=== PATIENT | male | born 1955 | race Caucasian/White ===

== ENCOUNTER 2023-08-25 08:01 | Outpatient (OUT) | payer BC, SELFPAY ==
[2023-08-25 08:24] LABS: Basophils Absolute Auto 0.1 10^3/uL (0.0-0.1); Basophils Percent Auto 1.5 % (0.2-2.0); Eosinophils Absolute Auto 0.4 10^3/uL (0.0-0.7); Hematocrit 46.5 % (42.0-54.0); Hemoglobin 15.6 g/dL (14.0-18.0); Immature Granulocytes Abs Auto 0.01 10^3/uL (0.00-0.03); Immature Granulocytes Pct Auto 0.2 % (0.0-0.5); Lymphocytes Absolute Auto 1.4 10^3/uL (1.2-3.8); Lymphocytes Percent Auto 23.2 % (20.5-60.0); Mean Corpuscular HGB Conc 33.5 g/dL (29.9-35.2); Mean Corpuscular Hemoglobin 30.7 pg (25.9-34.0); Mean Corpuscular Volume 91.5 fL (80.0-94.0); Monocytes Absolute Auto 0.5 10^3/uL (0.3-0.8); Monocytes Percent Auto 8.7 % (1.7-12.0); Neutrophils Absolute Auto 3.6 10^3/uL (1.4-6.5); Neutrophils Percent Auto 60.4 % (43.0-75.0); Platelet Count 207 10^3/uL (150-450); Red Blood Count 5.08 10^6/uL (4.70-6.10); Red Cell Distribution Width 12.1 % (11.0-15.0)
[2023-08-25 08:27] LABS: Bilirubin Urine NEGATIVE (NEGATIVE); Blood Urine NEGATIVE (NEGATIVE); Clarity Urine CLEAR (CLEAR); Color Urine YELLOW (YELLOW); Glucose Urine UA NEGATIVE (NEGATIVE); Ketones Urine NEGATIVE (NEGATIVE); Leukocyte Esterase Urine NEGATIVE (NEGATIVE); Nitrite Urine NEGATIVE (NEGATIVE); Protein Urine NEGATIVE (NEG/TRACE); Specific Gravity Urine 1.025 (1.005-1.025); Urobilinogen Urine 0.2 EU/dL (0.2-1.0); pH Urine 6.5 (5.0-9.0)
[2023-08-25 08:30] LABS: Bacteria Urine NONE SEEN #/HPF (NONE SEEN); Crystals Seen? None Seen #/HPF (None Seen); Mucus Urine NONE SEEN (NONE SEEN); RBC Urine NONE SEEN #/HPF (0-2); Squamous Epithelial Cell Urine NONE SEEN #/LPF (NONE/RARE); WBC Urine NONE SEEN #/HPF (NONE SEEN)
[2023-08-25 08:31] LABS: Cast Seen? NONE SEEN #/LPF (NONE SEEN)
[2023-08-25 09:08] LABS: Estimated Average Glucose 114 mg/dL; Glycohemoglobin A1C 5.6 % (4.5-6.2)
[2023-08-25 10:33] LABS: Alanine Aminotransferase 17 U/L (16-63); Albumin Level 3.9 g/dL (3.4-5.0); Alkaline Phosphatase 81 U/L (46-116); Anion Gap 9.6; Aspartate Amino Transferase 19 U/L (15-37); Bilirubin Total 0.6 mg/dL (0.2-1.0); Calcium 9.1 mg/dL (8.5-10.1); Carbon Dioxide 30.5 mmol/L (21.0-32.0); Chloride 104 mmol/L (98-107); Chol HDL Ratio 3.7; Cholesterol 179 mg/dL (<=200); Estimated GFR (African America >60 (>=60); Estimated GFR (Non-African Ame >60 (>=60); Globulin 3.8 g/dL; Glucose 94 mg/dL (74-106); HDL Cholesterol 49 mg/dL (40-60); LDL Cholesterol Calculated 110.8 mg/dL; Potassium 4.1 mmol/L (3.5-5.1); Sodium 140 mmol/L (136-145); Total Protein 7.7 g/dL (6.4-8.2); Triglycerides 96 mg/dL (<=150); VLDL CHOLESTEROL 19.2 mg/dL
== END 2023-08-25 08:02 | disposition home or self-care (01) ==
LOC: LAB 08:06
PROVIDERS: PCP Family Medicine; Visit Provider Family Medicine
DX: E78.5 Hyperlipidemia, unspecified (principal); R97.20 Elevated prostate specific antigen [PSA]; R35.1 Nocturia; R73.9 Hyperglycemia, unspecified; Z79.899 Other long term (current) drug therapy; R63.4 Abnormal weight loss
CPT/HCPCS: 36415; 80053; 80061; 81001; 83036; 84443; 85025; 87086; G0103

== ENCOUNTER 2024-08-27 06:52 | Outpatient (OUT) | payer BC, SELFPAY ==
--- OUTSIDE RECORDS SUMMARY | 2024-08-27 06:57 | XMS_ITS | CCD ---
Author Organization [facility] Care Team Providers Care Cable Splicer Assistant Name Role Phone Amanda Fry Unavailable LISANDRA, DR PATEL Admitting Unavailable LISANDRA, DR PATEL Attending Unavailable LISANDRA, DR PATEL Primary Care Unavailable LISANDRA, DR PATEL Consulting Unavailable Ball DO, Calvin E Primary Care Provider DAVID V, DEANDRA Attending Unavailable DAVID V, DEANDRA Admitting Unavailable DAVID V, DEANDRA Referring Unavailable BALL, CALVIN E Primary Care Unavailable DAVID V, DEANDRA Referring Unavailable DAVID V, DEANDRA Attending Unavailable BALL, CALVIN E Primary Care Unavailable DAVID V, DEANDRA Referring Unavailable BALL, CALVIN E Primary Care Unavailable DAVID V, DEANDRA Referring Unavailable BALL, CALVIN E Primary Care Unavailable DAVID V, DEANDRA Referring Unavailable BALL, CALVIN E Primary Care Unavailable DAVID V, DEANDRA Attending Unavailable DAVID V, DEANDRA Admitting Unavailable DAVID V, DEANDRA Referring Unavailable BALL, CALVIN E Primary Care Unavailable Unavailable Primary Care Provider Unavailflor e CORETTA MCGRATH Attending Unavailable Medications Current Medications Medication Drug Class(es) Dates Sig (Normalized) Sig (Original) ascorbic acid 500 mg oral capsule (2 sources) Vitamin C Vitamin C 500 MG Orally Active Multivitamin preparation (2 sources) Multivitamin Act william Vitamin C 500 MG (2 sources) Vitamin C 500 MG Orally Active Vitamin E (4 sources) Vitamin E Active Zinc (2 sources) Zinc Active Completed/Discontinued Medications Medication Drug Class(es) Dates Sig (Normalized) Sig (Original) acetaminophen 325 mg / oxyCODONE hydrochloride 5 mg oral tablet (1 source) Opioid Agonist Start: 10-02-2008 take 1-2 tablets by mouth every four hours as needed oxycodone hcl/acetaminophen (PERCOCET 5 MG-325 MG TAB) 1-2 PO q4h PRN 30 0 10/02/2008 Active Comment on above: 1-2 PO q4h PRN tamsulosin hydrochloride 0.4 mg oral capsule (1 source) alpha-Adrenergic Kale Start: 10-02-2008 tamsulosin hcl(FLOMAX 0.4 MG 24 HR CAP) Take one(1) tablet at bedtime. 30 0 10/02/2008 Active Comment on above: Take one(1) tablet a t bedtime. Problems Active Problems Problem Classification Problem Date Documented Da te Episodic/Chronic Blindness and vision defects (1 source) Bilateral hyperopia of eyes; Translations: [Hypermetropia, bilateral] 06-18-2023 Episodic Cataract (2 sources) Bilateral senile combined form cataracts of eyes; Translations: [Combined forms of age-related cataract, bilateral] Onset: 09-23-2023 06-18-2023 Chronic Diseases of white blood cells (4 sources) Eosinophil count raised; Translations: [Eosinophilia] Chronic Disorders of lipid metabolism (5 sources) Hyperlipidemia; Translations: [Hyperlipidemia, unspecified] Onset: 09-18-2021 Resolved: 09-18-2021 Chronic Essential hypertension (5 sources) Hypertensive disorder; Translations: [Essential (primary) hypertension] Onset: 09-18-2021 Resolved: 09-18-2021 Chronic Glaucoma (1 source) Narrow angle; 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, bilateral] 06-18-2023 Chronic Neoplasms of unspecified nature or uncertain behavior (2 sources) Neoplastic disease; Translations: [Neoplasm of unspecified behavior of bone, soft tissue, and skin] 06-30-2024 Episodic Other and unspecified benign neoplasm (4 sources) History of polyp of colon; Translations: [Personal history of colonic polyps] Episodic Other and unspecified benign neoplasm (2 sources) Melanocytic nevus of trunk; Translations: [Melanocytic nevi of trunk] 06-30-2024 Episodic Other circulatory disease (2 sources) Spider nevus; Translations: [Nevus, non-neoplastic] 06-30-2024 Episodic Other skin disorders (2 sources) Lentiginosis; Translations: [Other melanin hyperpigmentation] 06-30-2024 Episodic Other skin disorders (2 sources) Actinic keratosis; Translations: [Actinic keratosis] 06-30-2024 Episodic Other skin disorders (2 sources) Seborrheic keratosis; Translations: [Other seborrheic keratosis] 06-30-2024 Episodic Retinal detachments; defects; vascular occlusion; and retinopathy (1 source) Macular hole of right eye; Translations: [Macular cyst, hole, or pseudohole, right eye] 06-18-2023 Chronic Past or Other Problems Problem Classification Problem Date Documented Da te Episodic/Chronic Calculus of urinary tract (1 source) Ureteric stone; Translations: [Calculus of ureter] Onset: 08-29-2008 08-29-2008 Episodic Diabetes mellitus without complication (1 source) Hyperglycemia, unspecified Onset: 09-18-2021 Resolved: 09-18-2021 Episodic Genitourinary symptoms and ill-defined conditions (1 source) Nocturia Onset: 09-18-2021 Resolved: 09-18-2021 Episodic Other aftercare (1 source) Other director long term care (current) drug therapy Onset: 09-18-2021 Resolved: 09-18-2021 Episodic Other nutritional; endocrine; and metabolic disorders (1 source) Abnormal weight loss Onset: 09-18-2021 Resolved: 09-18-2021 Episodic Other screening for suspected conditions (not mental disorders or infectious disease) (1 source) Elevated prostate specific antigen [PSA] Onset: 09-18-2021 Resolved: 09-18-2021 Episodic Results Test Name Value Interpretation Reference Range Facility No Panel Informationon 06-30 Type of biopsy: tangential Informed consent: discussed and consent obtained Informed consent comment: The risks and benefits of the biopsy were discussed. Risks include but are not limited to bleeding, infection, scarring, pain, and nerve damage. An opportunity to ask questions prior to the procedure was permitted and all questions were answered. Patient was prepped and draped in usual sterile fashion: area cleansed with alcohol. Anesthesia: the lesion was anesthetized in a standard fashion Anesthetic: 1% lidocaine w/ epinephrine 1-100,000 buffered w/ 8.4% NaHCO3 Instrument used: DermaBlade Hemostasis achieved with: electrodesiccation Outcome: patient tolerated procedure well Outcome comment: The specimen was placed in a prelabeled formalin container to be sent for pathology Post-procedure details: sterile dressing applied and wound care instructions given Post-procedure details comment: Emphasized need to contact clinic for any signs of infection, uncontrollable bleeding, or complications. Dressing type: bandage Additional details: Photo taken Amount of lidocaine used: 1 cc [facility] Type of biopsy: tangential Informed consent: discussed and consent obtained Informed consent comment: The risks and benefits of the biopsy were discussed. Risks include but are not limited to bleeding, infection, scarring, pain, and nerve damage. An opportunity to ask questions prior to the procedure was permitted and all questions were answered. Patient was prepped and draped in usual sterile fashion: area cleansed with alcohol. Anesthesia: the lesion was anesthetized in a standard fashion Anesthetic: 1% lidocaine w/ epinephrine 1-100,000 buffered w/ 8.4% NaHCO3 Instrument used: DermaBlade Hemostasis achieved with: electrodesiccation Outcome: patient tolerated procedure well Outcome comment: The specimen was placed in a prelabeled formalin container to be sent for pathology Post-procedure details: sterile dressing applied and wound care instructions given Post-procedure details comment: Emphasized need to contact clinic for any signs of infection, uncontrollable bleeding, or complications. Dressing type: bandage Additional details: Photo taken Amount of lidocaine used: 1 cc [facility] Type of biopsy: tangential Informed consent: discussed and consent obtained Informed consent comment: The risks and benefits of the biopsy were discussed. Risks include but are not limited to bleeding, infection, scarring, pain, and nerve damage. An opportunity to ask questions prior to the procedure was permitted and all questions were answered. Patient was prepped and draped in usual sterile fashion: area cleansed with alcohol. Anesthesia: the lesion was anesthetized in a standard fashion Anesthetic: 1% lidocaine w/ epinephrine 1-100,000 buffered w/ 8.4% NaHCO3 Instrument used: DermaBlade Hemostasis achieved with: electrodesiccation Outcome: patient tolerated procedure well Outcome comment: The specimen was placed in a prelabeled formalin container to be sent for pathology Post-procedure details: sterile dressing applied and wound care instructions given Post-procedure details comment: Emphasized need to contact clinic for any signs of infection, uncontrollable bleeding, or complications. Dressing type: bandage Additional details: Photo taken Amount of lidocaine used: 1.0 cc [facility] ANE POSTPROC EVALon 024 ANES POSTPROC EVAL HNO ID: [id number] Author: MADAI BROOKS MD Service: Anesthesiology Author Type: Physician Type: Anesthesia Postprocedure Evaluation Filed: 10/07/2023 11:39 Note Text: POST ANESTHESIA EVALUATION NOTE : 1955 Procedure Summary Date: 10/07/23 Room / Location: [address] Anesthesia Start: 1041 Anesthesia Stop: 110 Procedures: PHACOEMULSIFICATION CATARACT IMPLANT INTRAOCULAR LENS W/O ENDOSCOPIC CYCLOPHOTOCOAGULATION (Right: Eye) OPHTHALMIC BIOMETRY BY PARTIAL COHERENCE INTERFEROMETRY W/INTRAOCULAR LENS POWER CALCULATION (Right: Eye) Diagnosis: Combined forms of age-related cataract of both eyes (Combined forms of age-related cataract of both eyes [H25.813]) Surgeons: Deandra Voss V, MD Responsible Provider: Madai Brooks MD Anesthesia Type: MAC ASA Status: 2 Anesthesia Type: MAC Last Vitals Vitals Value Taken Time BP 126/81 10/07/23 1111 Temp 36.6 ?C (97.9 ?F) 10/07/23 1101 HR SpO2 65 10/07/23 1111 Resp 16 10/07/23 1111 SpO2 98 % 10/07/23 1111 Post Anesthesia Patient Status Patient Evaluation: PACU. PACU/ICU Patient Condition: stable. Anticipated Disposition: phase 2 then home. Neurological Status: aware and responsive. Pulmonary Status: breathing comfortably on room air Airway Control: returned to baseline unsupported. Cardiovascular Status: stable. Pain Management: clinically adequate - multimodal analgesia pain management approach Postoperative Hydration: acceptable. Intraoperative Events: no significant anesthesia events Recommendation: continue current plan of care. Anesthesia Observations No Documentation SIGNATURE: Madai Brooks MD PATIENT NAME: Roger Kapadia DATE: October 07, 2023 TIME: 11:39 AM CSN: [id number] [facility] ANES PRE-OPon 10-07-2023 ANES PRE-OP HNO ID: [id number] Author: BERT CORTEZ II, DO Service: Anesthesiology Author Type: Anesthesiologist Type: Anesthesia Preprocedure Evaluation Filed: 10/07/2023 10:30 Note Text: ANESTHESIOLOGY DAY OF SURGERY NOTE : 1955 Procedure Information Date/Time: 10/07/23 1115 Procedures: PHACOEMULSIFICATION CATARACT IMPLANT INTRAOCULAR LENS W/O ENDOSCOPIC CYCLOPHOTOCOAGULATION (Right: Eye) OPHTHALMIC BIOMETRY BY PARTIAL COHERENCE INTERFEROMETRY W/INTRAOCULAR LENS POWER CALCULATION (Right: Eye) Location: [address] Surgeons: Deandra Voss V, MD Estimated body mass index is 24.74 kg/m? as calculated from the following: Height as of 09/11/23: 175.3 cm (5' 9 ). Weight as of 09/11/23: 76 kg (167 lb 8.8 oz). Most recent hematocrit and potassium results: Hematocrit 47.5 09/25/2008 Potassium 4.4 09/25/2008 Relevant Problems No relevant active problems I - PHYSICAL EVALUATION AIRWAY Patient intubated: No. Tracheostomy tube not present Mallampati: II. TM distance: >3 FB. Neck ROM: full ROM without neurological symptoms. Mouth opening: adequate. Short neck: no. Thick neck: no Elliott present: yes DENTAL Dental findings: teeth intact. Additional exam findings: yes. CARDIOVASCULAR Rhythm: regular Rate: normal PULMONARY Breath sounds clear to auscultation. Other findings: PONV. II - ANESTHESIA PLAN ASA Score: 2 Anesthetic Plan: MAC The patient is not a current smoker. NPO Status: adequate Beta Kale Monitoring Plan Monitoring plan: standard ASA. Post Procedure Analgesic Plan Postoperative analgesic plan: parenteral or oral opioids. Informed Consent Anesthetic risks, benefits, alternatives, personnel and consent discussed: yes. Patient / Responsible Democrat agrees to proceed: yes Patient / Surrogate agrees to blood products: Yes Vitals Value Taken Time BP 148/80 10/07/23 1018 Pulse 62 10/07/23 1018 Resp 16 10/07/23 1018 Temp 36.8 ?C (98.2 ?F) 10/07/23 1018 SpO2 98 % 10/07/23 1018 Facility-Administered Medications as of 10/07/2023 Medication Dose Route Frequency - NaCl 0.9% iv infusion 30 mL/hr INTRAVENOUS CONTINUOUS - [COMPLETED] lidocaine HCl (PF) 40 mg/mL 2 mg injection (XYLOCAINE) 0.05 mL RIGHT EYE EVERY 5 MINUTES X 3 DOSES - [COMPLETED] PHENYLephrine 2.5 % 1 Drop (AK-DILATE, RODGER-SYNEPHRINE) 1 Drop RIGHT EYE EVERY 5 MINUTES X 3 DOSES - [COMPLETED] tropicamide 1 % 1 Drop (MYDRIACYL) 1 Drop RIGHT EYE EVERY 5 MINUTES X 3 DOSES - cyclopentolate 1 % 1 Drop (CYCLOGYL) 1 Drop RIGHT EYE Pre-Op PRN - [COMPLETED] keTORolac 0.5 % 1 Drop (ACULAR) 1 Drop RIGHT EYE q 5 MIN - [COMPLETED] Povidone-Iodine 5 % 30 mL ophth soln (BETADINE) 30 mL RIGHT EYE ONCE - [COMPLETED] balanced salts 15 mL (BSS) 15 mL RIGHT EYE ONCE - ondansetron (PF) 4 mg injection (ZOFRAN) 4 mg INTRAVENOUS ONCE - [COMPLETED] lidocaine HCl (PF) 40 mg/mL 2 mg injection (XYLOCAINE) 0.05 mL LEFT EYE EVERY 5 MINUTES X 3 DOSES - [COMPLETED] PHENYLephrine 2.5 % 1 Drop (AK-DILATE, RODGER-SYNEPHRINE) 1 Drop LEFT EYE EVERY 5 MINUTES X 3 DOSES - [COMPLETED] tropicamide 1 % 1 Drop (MYDRIACYL) 1 Drop LEFT EYE EVERY 5 MINUTES X 3 DOSES - [COMPLETED] keTORolac 0.5 % 1 Drop (ACULAR) 1 Drop LEFT EYE q 5 MIN - [COMPLETED] Povidone-Iodine 5 % 30 mL ophth soln (BETADINE) 30 mL LEFT EYE ONCE - [COMPLETED] balanced salts 15 mL (BSS) 15 mL LEFT EYE ONCE - [COMPLETED] ondansetron (PF) 4 mg injection (ZOFRAN) 4 mg INTRAVENOUS ONCE Outpatient Medications as of 10/07/2023 Medication Sig - prednisoLONE acetate (PRED FORTE) 1 % ophthalmic suspension USE DIRECTED BY PHYSICIAN, IN OPERATIVE EYE, BEGINNING ONE DAY AFTER SURGERY - keTORolac (ACULAR) 0.5 % ophthalmic solution USE DIRECTED BY PHYSICIAN, IN OPERATIVE EYE, BEGINNING ONE DAY AFTER SURGERY - prednisoLONE acetate (PRED FORTE) 1 % ophthalmic suspension USE DIRECTED BY PHYSICIAN, IN OPERATIVE EYE, BEGINNING ONE DAY AFTER SURGERY - keTORolac (ACULAR) 0.5 % ophthalmic solution USE DIRECTED BY PHYSICIAN, IN OPERATIVE EYE, BEGINNING ONE DAY AFTER SURGERY I have interviewed and examined the patient. I have reviewed the medical record and/or the pre-anesthesia evaluation, pertinent labs, and test results. This contains updated information obtained within 48 hours of Surgery/Procedure. SIGNATURE: Bert Cortez II, DO PATIENT NAME: Roger Kapadia DATE: October 07, 2023 TIME: 10:30 AM CSN: [id number] [facility] OPERATIVE NOon 10-07-2023 OPERATIVE NO HNO ID: [id number] Author: DEANDRA VOSS MD Service: Ophthalmology Author Type: Physician Type: Operative Report Filed: 10/07/2023 10:56 Note Text: OPERATIVE REPORT DATE OF SERVICE: October 07, 2023 PRIMARY SURGEON: Deandra Voss M.D. PHOTOENGRAVING SUPERVISOR: None [Any nurse listed as assisting or otherwise participating in this patient's care in the operating room has solely performed the duties of a circulating nurse.] Procedure(s) (LRB): PHACOEMULSIFICATION CATARACT IMPLANT INTRAOCULAR LENS W/O ENDOSCOPIC CYCLOPHOTOCOAGULATION (Right) OPHTHALMIC BIOMETRY BY PARTIAL COHERENCE INTERFEROMETRY W/INTRAOCULAR LENS POWER CALCULATION (Right) ANESTHESIA: Topical with monitored anesthesia care. PREOPERATIVE DIAGNOSIS: Combined cataract POSTOPERATIVE DIAGNOSIS: Combined cataract, presbyopia OPERATIVE INDICATIONS: BAT 20/50 OPERATIVE PROCEDURE: The patient was admitted to the operating suite where an IV and BP, EKG, and O2 monitors were placed. The operative eye was pretreated with 2.5% tropicamide and 1% phenylephrine eye drops. The operative eye was confirmed and marked. The intended Intraocular lens model and power circled on the patient's source document was confirmed to match the intraocular lens model and power selected from the Intraocular lens consignment, in accordance with [facility] intraocular lens verification policy. Nasal oxygen was administered. With the patient in the supine position, topical lidocaine 4% was placed in the eye. The patient was then prepped and draped in the usual sterile fashion for intraocular surgery. After a time-out confirming correct patient using two unique identifiers, correct eye, correct operation, presence of allergies, correct implant, and implant sterility date, an eyelid speculum was placed. Under the operating microscope a beveled clear corneal incision was created temporally with a [place] blade then a 2.4 mm keratome. The anterior chamber was reformed with Viscoat, after which the anterior capsule was opened centrally. Using the Utrata forceps a continuous curvilinear capsulorrhexis of approximately 5.5 mm round was created. Gentle hydrodissection was accomplished using preservative-free lidocaine on a 27-gauge cannula. Using the Terrance phacoemulsification unit with the Kelman curved tip, the anterior chamber was entered and the nucleus was removed while it was in the bag. The epinuclear ring was dissected into several segments, then removed using the phacoemulsification unit set to the desired aspiration flow rate and ultrasound parameters. It was necessary to use chopper forceps at various intervals to aid in the fragmentation of the dense lens material. Great care was taken not to violate the posterior capsule. The silicone-tipped I and A instrument was used to remove the cortex and buff off any remaining cataractous material from the posterior capsule. The capsular bag was then reformed with Discovisc and the following Intraocular lens implant Implant Name Type Inv. Item Serial No. [employer] Lot No. LRB No. Used Action Model No. [id number] [employer] - [id number] Intraocular Lens [id number] [employer] [id number] [employer] Right 1 Implanted [id number] was inserted through the lips of the wound into the capsular bag. Using the I and A instrument, the Discovisc was removed from the anterior chamber and capsular bag, and the implant was centered. Cefuroxime 1mg in 0.1 mL normal saline was introduced into the anterior chamber through the clear corneal incision using a 30 gauge cannula. The wound was checked and found to be watertight. At the end of the procedure, the cornea was clear, the anterior chamber was deep and clear, the pupil was round, the implant was centered within the capsular bag, and the posterior capsule was intact. The eyelid speculum was removed and prednisolone acetate 1% and timolol 0.5% eye drops were administered. A shield was affixed over the eye and the patient was sent to the recovery room, leaving the operating room in excellent condition. ESTIMATED BLOOD LOSS: <1mL SPECIMEN: None FINDINGS: Age-related cataract COMPLICATIONS: None Incision/Procedure Start Time: 10:47 AM Incision Close/Procedure End Time: 10:54 AM - Comanage with Dr Sood; relinquish care POD #1 Deandra VOSS MD [facility] ANES POSTPROC EVALon 024 ANES POSTPROC EVAL HNO ID: [id number] Author: BERT CORTEZ II, DO Service: Anesthesiology Author Type: Anesthesiologist Type: Anesthesia Postprocedure Evaluation Filed: 09/23/2023 14:09 Note Text: POST ANESTHESIA EVALUATION NOTE : 1955 Procedure Summary Date: 09/23/23 Room / Location: [address] Anesthesia Start: 1329 Anesthesia Stop: 1345 Procedures: PHACOEMULSIFICATION CATARACT IMPLANT INTRAOCULAR LENS W/O ENDOSCOPIC CYCLOPHOTOCOAGULATION (Left: Eye) OPHTHALMIC BIOMETRY BY PARTIAL COHERENCE INTERFEROMETRY W/INTRAOCULAR LENS POWER CALCULATION (Left: Eye) Diagnosis: Combined forms of age-related cataract of both eyes (Combined forms of age-related cataract of both eyes [H25.813]) Surgeons: Deandra Voss V, MD Responsible Provider: Bert Cortez II, DO Anesthesia Type: MAC ASA Status: 2 Anesthesia Type: MAC Last Vitals Vitals Value Taken Time BP 129/80 09/23/23 1355 Temp 36.6 ?C (97.9 ?F) 09/23/23 1345 HR SpO2 68 09/23/23 1355 Resp 16 09/23/23 1355 SpO2 96 % 09/23/23 1355 Post Anesthesia Patient Status Patient Evaluation: PACU. PACU/ICU Patient Condition: stable. Neurological Status: aware and responsive. Pulmonary Status: breathing comfortably on room air Airway Control: returned to baseline unsupported. Cardiovascular Status: stable. Pain Management: clinically adequate Postoperative Hydration: acceptable. Intraoperative Events: no significant anesthesia events Post Operative Nausea/Vomiting Status: no significant post operative nausea or vomiting Recommendation: continue current plan of care. Anesthesia Observations No Documentation SIGNATURE: Bert Cortez II, DO PATIENT NAME: Roger Kapadia DATE: September 23, 2023 TIME: 2:09 PM CSN: [id number] [facility] ANES PRE-OPon 09-23-2023 ANES PRE-OP HNO ID: [id number] Author: BERT CORTEZ II, DO Service: Anesthesiology Author Type: Anesthesiologist Type: Anesthesia Preprocedure Evaluation Filed: 09/23/2023 13:08 Note Text: ANESTHESIOLOGY DAY OF SURGERY NOTE : 1955 Procedure Information Date/Time: 09/23/23 1240 Procedures: PHACOEMULSIFICATION CATARACT IMPLANT INTRAOCULAR LENS W/O ENDOSCOPIC CYCLOPHOTOCOAGULATION (Left: Eye) OPHTHALMIC BIOMETRY BY PARTIAL COHERENCE INTERFEROMETRY W/INTRAOCULAR LENS POWER CALCULATION (Left: Eye) Location: [address] Surgeons: Deandra Voss V, MD Estimated body mass index is 24.74 kg/m? as calculated from the following: Height as of 09/11/23: 175.3 cm (5' 9 ). Weight as of 09/11/23: 76 kg (167 lb 8.8 oz). Most recent hematocrit and potassium results: Hematocrit 47.5 09/25/2008 Potassium 4.4 09/25/2008 Relevant Problems No relevant active problems I - PHYSICAL EVALUATION AIRWAY Patient intubated: No. Tracheostomy tube not present Mallampati: II. TM distance: >3 FB. Neck ROM: full ROM without neurological symptoms. Mouth opening: adequate. Short neck: no. Thick neck: no Elliott present: yes DENTAL Dental findings: teeth intact. Additional exam findings: yes. CARDIOVASCULAR Rhythm: regular Rate: normal PULMONARY Breath sounds clear to auscultation. Other findings: PONV. II - ANESTHESIA PLAN ASA Score: 2 Anesthetic Plan: MAC The patient is not a current smoker. NPO Status: adequate Beta Kale Monitoring Plan Monitoring plan: standard ASA. Post Procedure Analgesic Plan Postoperative analgesic plan: parenteral or oral opioids. Informed Consent Anesthetic risks, benefits, alternatives, personnel and consent discussed: yes. Patient / Responsible Democrat agrees to proceed: yes Patient / Surrogate agrees to blood products: Yes Vitals Value Taken Time BP 155/94 09/23/23 1257 Pulse Resp 14 09/23/23 1257 Temp 36.6 ?C (97.9 ?F) 09/23/23 1257 SpO2 100 % 09/23/23 1257 Facility-Administered Medications as of 09/23/2023 Medication Dose Route Frequency - NaCl 0.9% iv infusion 30 mL/hr INTRAVENOUS CONTINUOUS - [COMPLETED] lidocaine HCl (PF) 40 mg/mL 2 mg injection (XYLOCAINE) 0.05 mL LEFT EYE EVERY 5 MINUTES X 3 DOSES - [COMPLETED] PHENYLephrine 2.5 % 1 Drop (AK-DILATE, RODGER-SYNEPHRINE) 1 Drop LEFT EYE EVERY 5 MINUTES X 3 DOSES - [COMPLETED] tropicamide 1 % 1 Drop (MYDRIACYL) 1 Drop LEFT EYE EVERY 5 MINUTES X 3 DOSES - cyclopentolate 1 % 1 Drop (CYCLOGYL) 1 Drop LEFT EYE Pre-Op PRN - [COMPLETED] keTORolac 0.5 % 1 Drop (ACULAR) 1 Drop LEFT EYE q 5 MIN - [COMPLETED] Povidone-Iodine 5 % 30 mL ophth soln (BETADINE) 30 mL LEFT EYE ONCE - [COMPLETED] balanced salts 15 mL (BSS) 15 mL LEFT EYE ONCE Outpatient Medications as of 09/23/2023 Medication Sig - prednisoLONE acetate (PRED FORTE) 1 % ophthalmic suspension USE DIRECTED BY PHYSICIAN, IN OPERATIVE EYE, BEGINNING ONE DAY AFTER SURGERY - keTORolac (ACULAR) 0.5 % ophthalmic solution USE DIRECTED BY PHYSICIAN, IN OPERATIVE EYE, BEGINNING ONE DAY AFTER SURGERY I have interviewed and examined the patient. I have reviewed the medical record and/or the pre-anesthesia evaluation, pertinent labs, and test results. This contains updated information obtained within 48 hours of Surgery/Procedure. SIGNATURE: Bert Cortez II, DO PATIENT NAME: Roger Kapadia DATE: September 23, 2023 TIME: 1:07 PM CSN: [id number] [facility] [facility] OPERATIVE NOon 09-23-2023 OPERATIVE NO HNO ID: [id number] Author: DEANDRA VOSS MD Service: Ophthalmology Author Type: Physician Type: Operative Report Filed: 09/23/2023 14:03 Note Text: OPERATIVE REPORT DATE OF SERVICE: September 23, 2023 PRIMARY SURGEON: Deandra Voss M.D. PHOTOENGRAVING SUPERVISOR: None Procedure(s) (LRB): PHACOEMULSIFICATION CATARACT IMPLANT INTRAOCULAR LENS W/O ENDOSCOPIC CYCLOPHOTOCOAGULATION (Left) OPHTHALMIC BIOMETRY BY PARTIAL COHERENCE INTERFEROMETRY W/INTRAOCULAR LENS POWER CALCULATION (Left) ANESTHESIA: Topical with monitored anesthesia care. PREOPERATIVE DIAGNOSIS: Combined cataract POSTOPERATIVE DIAGNOSIS: Combined cataract, presbyopia OPERATIVE INDICATIONS: BAT 20/50 OPERATIVE PROCEDURE: The patient was admitted to the operating suite where an IV and BP, EKG, and O2 monitors were placed. Nasal oxygen was administered. The operative eye was confirmed, marked, then pretreated with 2.5% tropicamide and 1% phenylephrine eye drops. With the patient in the supine position, topical lidocaine gel 2% was placed in a small ribbon in the lower cul-de-sac. The patient was then prepped and draped in the usual sterile fashion for intraocular surgery. After a time-out confirming correct patient, correct eye, correct operation, presence of allergies, and correct implant, an eyelid speculum was placed. Under the operating microscope a beveled clear corneal incision was created temporally with a Falmouth blade then a 2.4 mm keratome. The anterior chamber was reformed with Viscoat, after which the anterior capsule was opened centrally. Using the Utrata forceps a continuous curvilinear capsulorrhexis of approximately 5.5 mm round was created. Gentle hydrodissection was accomplished using preservative-free lidocaine on a 27-gauge cannula. Using the Terrance phacoemulsification unit with the Kelman curved tip, the anterior chamber was entered and the nucleus was removed while it was in the bag. The epinuclear ring was dissected into several segments, then removed using the phacoemulsification unit set to the desired aspiration flow rate and ultrasound parameters. It was necessary to use chopper forceps at various intervals to aid in the fragmentation of the dense lens material. Great care was taken not to violate the posterior capsule. The silicone-tipped I and A instrument was used to remove the cortex and buff off any remaining cataractous material from the posterior capsule. The capsular bag was then reformed with Discovisc and the following Intraocular lens implant Implant Name Type Inv. Item Serial No. [employer] Lot No. LRB No. Used Action Model No. [id number] [employer] - [id number] Intraocular Lens [id number] [employer] [id number] [employer] Left 1 Implanted [id number] was inserted through the lips of the wound into the capsular bag. Using the I and A instrument, the Discovisc was removed from the anterior chamber and capsular bag, and the implant was centered. Cefuroxime 1mg in 0.1 mL normal saline was introduced into the anterior chamber through the clear corneal incision using a 30 gauge cannula. The wound was checked and found to be watertight. At the end of the procedure, the cornea was clear, the anterior chamber was deep and clear, the pupil was round, the implant was centered within the capsular bag, and the posterior capsule was intact. The eyelid speculum was removed and prednisolone acetate 1% and timolol 0.5% eye drops were administered. A shield was affixed over the eye and the patient was sent to the recovery room, leaving the operating room in excellent condition. ESTIMATED BLOOD LOSS: <1mL SPECIMEN: None FINDINGS: Age-related cataract COMPLICATIONS: None Incision/Procedure Start Time: 1:33 PM Incision Close/Procedure End Time: 1:40 PM - Comanage with Dr Sood; [facility] care POD #1 Deandra VOSS MD [facility] ROGER KAPADIA ([id number]) 1955 M Date Time Provider Department 09/11/23 SHANTAL NGUYỄN During your visit today, we recorded the following information about you: Allergies As of Date: 09/11/2023 (No Known Allergies) Date Reviewed: 06/18/2023 Reviewed by: Deandra Voss V, MD - Fully Assessed Primary Visit Diagnosis:OPENED IN ERROR Prescriptions as of 09/11/2023 - oxycodone hcl/acetaminophen(PERCO CET 5 MG-325 MG TAB) 1-2 PO q4h PRN - tamsulosin hcl(FLOMAX 0.4 MG 24 HR CAP) Take one(1) tablet at bedtime. Problem List As Of Date 09/11/2023 Noted Resolved CALCULUS OF URETER [N20.1] 08/29/2008 Encounter Status:Closed by SHANTAL NGUYỄN on 09/11/23 [facility] HISTORY PHYSICALon HISTORY PHYSICAL HNO ID: [id number] Author: SHANTAL NGUYỄN APRN.INTELLIGENCE ANALYST Service: ? Author Type: Nurse Practitioner Type: H&P Filed: 09/11/2023 08:18 Note Text: HISTORY AND PHYSICAL EXAMINATION SERVICE DATE: 09/11/2023 SERVICE TIME: 7:55 AM PRIMARY CARE PHYSICIAN: Calvin Cox DO REASON FOR VISIT: Roger Kapadia is a 67 year old male who is scheduled for Bilateral cataract surgery at the request of Dr. Deandra Voss V for consultation. My final recommendation will be communicated back to the requesting physician by way of shared medical record or letter. Assessment/Plan Assessment: There is no known pertinent medical condition which may affect lyudmila-operative course METS: Climb a flight of stairs or walk up a hill (5.50 METs) Do heavy work around the house, such as scrubbing floors, lifting or moving heavy furniture (8.00 METs) Patient denies any chest pain or undue shortness of breath with the above physical activity. ANESTHESIA FINDINGS: Intubation History: No history of difficult intubation Significant Anesthesia Considerations: None Airway Exam: General: Normal appearance Mallampati Score is CLASS II ULBT: Class I - Lower incisors can bite the upper lip above the dee line Neck: Normal appearance and function, Distance from hyoid to mentum during neck extension is at least 3 finger breaths Mouth: Normal tongue size Dentition: Intact Airway History: No abnormal airway history STOP BANG Score: Criteria: Snoring Age over 50 (67 year old) Male gender Score = 3 The patient has the following: ACTIVE PROBLEM LIST Calculus of Ureter Subjective CHIEF COMPLAINT: Vision changes HPI: 67 year old year old presents today with complaints of difficulty with vision for > 3 months. Found to have cataract on exam. Denies pain. No relieving factors. Elected for above surgery No past medical history on file. PAST SURGICAL HISTORY Procedure Laterality Date ANES NRV MUSC TNDN FSCIA BURSA SHOULDER AND AXILLA 09/07/2001 rt out patient sx ARTHROSC SH TENODESIS BICEPS Right BACK SURGERY HX KIDNEY STONE SURGERY HX FAMILY HISTORY Problem Relation Age of Onset Difficulty with anesthesia No Family History SOCIAL HISTORY: Social History Tobacco Use Smoking status: Never Smokeless tobacco: Never Substance Use Topics Alcohol use: Yes Comment: a few beers per week Drug use: Not Currently Prior to Admission medications as of 09/11/23 0800 Medication Sig Last Dose Taking multivit,calc,min-FA-K1 -lycop (ONE-A-DAY MEN'S COMPLETE) 240 mcg-30 mcg- 300 mcg tab Take 1 tablet by mouth once daily. Yes ascorbic acid, vitamin C, (VITAMIN C) 500 mg tablet Take 500 mg by mouth once daily. Yes No medication comments found. ALLERGIES No Known Allergies REVIEW OF SYSTEMS: PAIN ASSESSMENT: General: No weight loss, malaise or fevers. Neuro: No history of TIA's, stroke, WELDER METAL FAB tumor, impaired sensorium, hemiplegia, paraplegia or quadraplegia. No neurological symptoms or problems. Respiratory: No history of current cough or dyspnea, or pneumonia in the past 6 weeks. No history of respiratory/pulmonary symptoms or problems. + snoring Cardiovascular: No history of HTN requiring medication, no history of angina, CHF, AL, cardiac surgery or stents. Denies rest pain, gangrene or revascularization/amput ation for PVD. No history of cardiovascular symptoms or problems. GI: No history of GI symptoms or problems. No history of esophageal varices, recent ascites, or ETOH greater than 2 drinks per day. : No difficulty urinating, nocturia > 1 time per night or hematuria Hx of kidney stones Endocrine: No history of diabetes. Has not taken steroids within the past 30 days. No history of endocrinological symptoms or problems. Hematology: No history of bleeding or clotting disorder. Pt is not taking anti-coagulation or platelet medications. No history of hematological symptoms or problems. Oncology: No history of CA metastasis, chemo within 30 days, or radiotherapy within 90 days. Has not lost 10% of body wt in 6 months. No history of oncological symptoms or problems. Psych: No history of psychiatric symptoms or problems. Musculoskeletal: Negative for joint pain or swelling, back pain or muscle pain. Skin: Negative for lesions, rash and itching. Objective PHYSICAL EXAM: VITALS: BP 132/85 Pulse 62 Temp (Src) 97 (Temporal) Resp 16 Ht 5' 9 (1.75m) Wt 167 lb 8.8 oz (76.0kg) SpO2 100% BMI 24.73 kg/(m2). General: Alert and oriented, No acute distress Skin: Normal color, no rash, no lesions. HEENT: EOM, pupils equal, round and reactive. Cardiovascular: Normal S1 AND S2, no rubs, murmurs or gallops. No JVD. Pulse regular. Lungs: Normal breath sounds, no wheezes or crackles. Extremities: No deformity, no edema or tenderness, no joint swelling or clubbing. Neurological: Normal cognition and motor skills. Pulses: Carotid and radial pulses normal + (more content not included)... Normal [facility] PSA, FREE AND TOTAL RATIOon 09-09-2022 % Free PSA 26.9 % Normal [facility] Comment on above: Result Comment: The table below lists the probability of prostate cancer for men with non-suspicious JANINA results and total PSA between 4 and 10 ng/mL, by patient age (Nathan et al, NANCY 1998, [id number]). % Free PSA 50-64 yr 65-75 yr 0.00-10.00% 56% 55% 10.01-15.00% 24% 35% 15.01-20.00% 17% 23% 20.01-25.00% 10% 20% >25.00% 5% 9% Please note: Nathan et al did not make specific recommendations regarding the use of percent free PSA for any other population of men. Performed By: #### P SAFREE #### [facility] [address] [place] [address] Dr. Car Vines Prostate specific Ag [Mass/Vol] 1.6 ng/mL Normal 0.0-4.0 [facility] Comment on above: Result Comment: Kush BURKS methodology. . According to the [place] [employer], Serum PSA should decrease and remain at undetectable levels after radical prostatectomy. The AUA defines biochemical recurrence as an initial PSA value 0.2 ng/mL or greater followed by a subsequent confirmatory PSA value 0.2 ng/mL or greater. Values obtained with different assay methods or kits cannot be used interchangeably. Results cannot be interpreted as absolute evidence of the presence or absence of malignant disease. Performed By: #### P SAFREE #### [facility] [address] [place] [address] Dr. Car Vines PSA, Free 0.43 ng/mL Normal N/A [facility] Comment on above: Result Comment: Kush BURKS methodology. Performed By: #### P SAFREE #### [facility] [address] [place] [address] Dr. Car Vines CBC AUTO DIFFon 09-08-2022 BASO # 0.1 103/ul Normal 0.0-0.1 [facility] Comment on above: Performed By: #### C BC #### [facility] [address] [place] [address] Dr. Car Vines Basophils/100 WBC (Bld) 1.2 % Normal 0.2-2.0 [facility] Comment on above: Performed By: #### C BC #### [facility] [address] [place] [address] Dr. Cra Vines EO # 0.5 103/ul Normal 0.0-0.7 [facility] Comment on above: Performed By: #### C BC #### [facility] [address] [place] [address] Dr. Car Vines Eosinophils/100 WBC (Bld) 5.6 % Normal 0.9-7.0 [facility] Comment on above: Performed By: #### C BC #### [facility] [address] [place] [address] Dr. Car Vines Erythrocyte distribution width (RBC) [Ratio] 12.4 % Normal 11.0-15.0 [facility] Comment on above: Performed By: #### C BC #### [facility] [address] [place] [address] Dr. Car Vines Hematocrit (Bld) [Volume fraction] 47.1 % Normal 42.0-54.0 [facility] Comment on above: Performed By: #### C BC #### [facility] [address] [place] [address] Dr. Car Vines Hemoglobin (Bld) [Mass/Vol] 16.1 g/dL Normal 14.0-18.0 [facility] Comment on above: Performed By: #### C BC #### [facility] [address] [place] [address] Dr. Car Vines IG # 0.02 10e3/ul Normal 0.00-0.03 [facility] Comment on above: Performed By: #### C BC #### [facility] [address] [place] [address] Dr. Car Vines IG % 0.2 % Normal 0.0-0.5 [facility] Comment on above: Performed By: #### C BC #### [facility] [address] [place] [address] Dr. Car Vines LYMPH # 1.6 103/ul Normal 1.2-3.8 [facility] Comment on above: Performed By: #### C BC #### [facility] [address] [place] [address] Dr. Car Vines Lymphocytes/100 WBC (Bld) 20.0 % Critically low 20.5-60.0 [facility] Comment on above: Performed By: #### C BC #### [facility] [address] [place] [address] Dr. Car Vines MANUAL DIFF REQ NO Normal [facility] Comment on above: Performed By: #### C BC #### [facility] [address] [place] [address] Dr. Car Vines MCH (RBC) [Entitic mass] 30.5 pg Normal 25.9-34.0 [facility] Comment on above: Performed By: #### C BC #### [facility] [address] [place] [address] Dr. Car Vines MCHC (RBC) [Mass/Vol] 34.2 g/dL Normal 29.9-35.2 [facility] Comment on above: Performed By: #### C BC #### [facility] [address] [place] [address] Dr. Car Vines MCV (RBC) [Entitic vol] 89.2 fL Normal 80.0-94.0 [facility] Comment on above: Performed By: #### C BC #### [facility] [address] [place] [address] Dr. Car Vines MONO # 0.6 103/ul Normal 0.3-0.8 [facility] Comment on above: Performed By: #### C BC #### [facility] [address] [place] [address] Dr. Car Vines Monocytes/100 WBC (Bld) 7.4 % Normal 1.7-12.0 [facility] Comment on above: Performed By: #### C BC #### [facility] [address] [place] [address] Dr. Car Vines NEUT # 5.3 103/ul Normal 1.4-6.5 [facility] Comment on above: Performed By: #### C BC #### [facility] [address] [place] [address] Dr. Car Vines Neutrophils/100 WBC (Bld) 65.6 % Normal 43.0-75.0 [facility] Comment on above: Performed By: #### C BC #### [facility] [address] [place] [address] Dr. Car Vines Platelet mean volume (Bld) [Entitic vol] 9.1 fL Critically low 9.5-13.5 [facility] Comment on above: Performed By: #### C BC #### [facility] [address] [place] [address] Dr. Car Vines PLT 231 103/ul Normal 150-450 [facility] Comment on above: Performed By: #### C BC #### [facility] [address] [place] [address] Dr. Car Vines RBC 5.28 106/ul Normal 4.70-6.10 [facility] Comment on above: Performed By: #### C BC #### [facility] [address] [place] [address] Dr. Car Vines WBC 8.1 103/ul Normal 4.0-11.0 [facility] Comment on above: Performed By: #### C BC #### [facility] [address] [place] [address] Dr. Car Vines CULTURE URINEon 09-08-2022 CULTURE URINE Culture Observations : NO GROWTH. Normal [facility] Comment on above: Performed By: #### U RCX #### [facility] [address] [place] [address] Dr. Car Vines GLYCOHEMOGLOBIN A1Con 2022 ADA RECOMMENDATION SEE BELOW Normal [facility] Comment on above: Result Comment: ADA RECOMMENDED LIMIT 4.0 - 6.0 ADA THERAPEUTIC TARGET < 7.0 ACTION SUGGESTED > 7.0 Performed By: #### A 1C #### [facility] [address] [place] [address] Dr. Car Vines Glucose [Mass/Vol] 103 mg/dL Normal [facility] Comment on above: Performed By: #### A 1C #### [facility] [address] [place] [address] Dr. Car Vines HbA1c (Bld) [Mass fraction] 5.2 % Normal 4.5-6.2 [facility] Comment on above: Performed By: #### A 1C #### [facility] [address] [place] [address] Dr. Car Vines LIPID PROFILEon 09-08-2022 CHOL-HDL RATIO NORM SEE BELOW Normal [facility] Comment on above: Result Comment: 3.3 - 4.4 LOW RISK 4.4 - 7.1 AVERAGE RISK 7.1 - 11.0 MODERATE RISK >11.0 HIGH RISK Performed By: #### L IPID, TSH, CMP #### [facility] [address] [address] [address] Car Vines Cholesterol [Mass/Vol] 191 mg/dL Normal <=200 [facility] Comment on above: Performed By: #### L IPID, TSH, CMP #### [facility] [address] [address] [address] Car Vines Cholesterol in HDL [Mass/Vol] 45 mg/dL Normal 40-60 [facility] Comment on above: Performed By: #### L IPID, TSH, CMP #### [facility] [address] [place] [address] Dr. Car Vines Cholesterol in LDL [Mass/Vol] 122.4 mg/dL Normal [facility] Comment on above: Performed By: #### L IPID, TSH, CMP #### [facility] [address] [address] [address] Car Vines Cholesterol.total/C holesterol in HDL [Mass ratio] 4.2 {ratio} Normal [facility] Comment on above: Performed By: #### L IPID, TSH, CMP #### [facility] [address] [place] [address] Dr. Car Vines HDL NORMAL > or = 60 mg/dl - LO W CARDIOVASCULAR RISK <40 mg/dl - HIGH CARDIOVASCULAR RISK Normal [facility] Comment on above: Performed By: #### L IPID, TSH, CMP #### [facility] [address] [place] [address] Dr. Car Vines LDL CALC NORMAL SEE BELOW Normal [facility] Comment on above: Result Comment: <100 mg/dl OPTIMAL 100 - 129 mg/dl NEAR OR ABOVE OPTIMAL 130 - 159 mg/dl BORDERLINE HIGH 160 - 189 mg/dl HIGH >190 mg/dl VERY HIGH Performed By: #### L IPID, TSH, CMP #### [facility] [address] [address] [address] Car Vines Triglyceride [Mass/Vol] 118 mg/dL Normal <=150 [facility] Comment on above: Performed By: #### L IPID, TSH, CMP #### [facility] [address] [address] [address] Car Vines VLDL CALC 23.6 mg/dL Normal [facility] Comment on above: Performed By: #### L IPID, TSH, CMP #### [facility] [address] [address] [address] Car Vines PROF 14(COMP METB)on 023 Albumin [Mass/Vol] 3.8 g/dL Normal 3.4-5.0 [facility] Comment on above: Performed By: #### L IPID, TSH, CMP #### [facility] [address] [address] [address] Car Vines Albumin/Globulin [Mass ratio] 1.1 {ratio} Normal [facility] Comment on above: Performed By: #### L IPID, TSH, CMP #### [facility] [address] [place] [address] Dr. Car Vines ALP [Catalytic activity/Vol] 81 U/L Normal 46-116 [facility] Comment on above: Performed By: #### L IPID, TSH, CMP #### [facility] [address] [address] [address] Car Vines ALT [Catalytic activity/Vol] 15 U/L Critically low 16-63 [facility] Comment on above: Performed By: #### L IPID, TSH, CMP #### [facility] [address] [address] [address] Car Vines Anion gap [Moles/Vol] 8.4 mmol/L Normal [facility] Comment on above: Performed By: #### L IPID, TSH, CMP #### [facility] [address] [address] [address] Car Vines AST [Catalytic activity/Vol] 19 U/L Normal 15-37 [facility] Comment on above: Performed By: #### L IPID, TSH, CMP #### [facility] [address] [place] [address] Dr. Car Vines Bilirubin [Mass/Vol] 0.6 mg/dL Normal 0.2-1.0 [facility] Comment on above: Performed By: #### L IPID, TSH, CMP #### [facility] [address] [place] [address] Dr. Car Vines Calcium [Mass/Vol] 9.1 mg/dL Normal 8.5-10.1 [facility] Comment on above: Performed By: #### L IPID, TSH, CMP #### [facility] [address] [place] [address] Dr. Car Vines Chloride [Moles/Vol] 103 mmol/L Normal 98-107 [facility] Comment on above: Performed By: #### L IPID, TSH, CMP #### [facility] [address] [place] [address] Dr. Car Vines CO2 [Moles/Vol] 34.9 mmol/L Critically high 21.0-32.0 [facility] Comment on above: Performed By: #### L IPID, TSH, CMP #### [facility] [address] [place] [address] Dr. Car Vines Creatinine [Mass/Vol] 0.95 mg/dL Normal 0.70-1.30 [facility] Comment on above: Performed By: #### L IPID, TSH, CMP #### [facility] [address] [place] [address] Dr. Car Vines EGFR-AF KAZAKH >60 Normal >=60 [facility] Comment on above: Performed By: #### L IPID, TSH, CMP #### [facility] [address] [place] [address] Dr. Car Vines EGFR-NON AF KAZAKH >60 Normal >=60 [facility] Comment on above: Performed By: #### L IPID, TSH, CMP #### [facility] [address] [place] [address] Dr. Car Vines Globulin (S) [Mass/Vol] 3.6 g/dL Normal [facility] Comment on above: Performed By: #### L IPID, TSH, CMP #### [facility] [address] [address] [address] Car Vines Glucose [Mass/Vol] 101 mg/dL Normal 74-106 [facility] Comment on above: Performed By: #### L IPID, TSH, CMP #### [facility] [address] [address] [address] Car Vines Potassium [Moles/Vol] 4.3 mmol/L Normal 3.5-5.1 [facility] Comment on above: Performed By: #### L IPID, TSH, CMP #### [facility] [address] [place] [address] Dr. Car Vines Protein [Mass/Vol] 7.4 g/dL Normal 6.4-8.2 [facility] Comment on above: Performed By: #### L IPID, TSH, CMP #### [facility] [address] [place] [address] Dr. Car Vines Sodium [Moles/Vol] 142 mmol/L Normal 136-145 [facility] Comment on above: Performed By: #### L IPID, TSH, CMP #### [facility] [address] [place] [address] Dr. Car Vines Urea nitrogen [Mass/Vol] 13.0 mg/dL Normal 7.0-18.0 [facility] Comment on above: Performed By: #### L IPID, TSH, CMP #### [facility] [address] [place] [address] Dr. Car Vines Urea nitrogen/Creatinine [Mass ratio] 13.7 mg/mg Normal [facility] Comment on above: Performed By: #### L IPID, TSH, CMP #### [facility] [address] [place] [address] Dr. Car Vines TSHon 09-08-2022 TSH 2.157 uIU/mL Normal 0.358-3.740 [facility] Comment on above: Performed By: #### L IPID, TSH, CMP #### [facility] [address] [address] [address] Car Vines UA RANDOMon 09-08-2022 Bilirubin Ql (U) Negative Normal NEGATIVE [facility] Comment on above: Performed By: #### U A #### [facility] [address] [place] [address] Dr. Car Vines Clarity (U) CLEAR Normal CLEAR [facility] Comment on above: Performed By: #### U A #### [facility] [address] [address] [address] Car Vines Color (U) LT. YELLOW Normal YELLOW [facility] Comment on above: Performed By: #### U A #### [facility] [address] [place] [address] Dr. Car Vines Glucose Ql (U) Negative Normal NEGATIVE [facility] Comment on above: Performed By: #### U A #### [facility] [address] [place] [address] Dr. Car Vines Hemoglobin Ql (U) Negative Normal NEGATIVE [facility] Comment on above: Performed By: #### U A #### [facility] [address] [place] [address] Dr. Car Vines Ketones Ql (U) Negative Normal NEGATIVE [facility] Comment on above: Performed By: #### U A #### [facility] [address] [place] [address] Dr. Car Vines LEUKOCYTES Negative Normal NEGATIVE [facility] Comment on above: Performed By: #### U A #### [facility] [address] [place] [address] Dr. Car Vines Nitrite Ql (U) Negative Normal NEGATIVE [facility] Comment on above: Performed By: #### U A #### [facility] [address] [place] [address] Dr. Car Vines pH (U) 7.0 [pH] Normal 5-9 [facility] Comment on above: Performed By: #### U A #### [facility] [address] [address] [address] Car Vines SPEC GRAVITY 1.020 Normal 1.005-<=1.025 [facility] Comment on above: Performed By: #### U A #### [facility] [address] [address] [address] Car Vines UA PROTEIN Negative Normal NEGATIVE/ TRACE [facility] Comment on above: Performed By: #### U A #### [facility] [address] [address] [address] Car Vines Urobilinogen Qn (U) 0.2 {Jovita'U}/dL Normal 0.2 - 1. 0 [facility] Comment on above: Performed By: #### U A #### [facility] [address] [place] [address] Dr. Car Vines Vital Signs Date Time Vital Sign Value Performing Clinician Facility 09-18-2021 10:10-0500 Body height 175.26 cm Amanda Fry Other [facility] Other 09-18-2021 10:10-0500 Body mass index (BMI) [Ratio] 25.18 kg/m2 Amanda Fry Other [facility] Other 09-18-2021 10:10-0500 Body temperature 97.2 [degF] Amanda Fry Other [facility] Other 09-18-2021 10:10-0500 Body weight 77.34 kg Amanda Fry Other [facility] Other 09-18-2021 10:10-0500 Diastolic blood pressure 82 mm[Hg] Amanda Fry Other [facility] Other 09-18-2021 10:10-0500 Respiratory rate 18 /min Amanda Fry Other [facility] Other 09-18-2021 10:10-0500 SaO2% (BldA) [Mass fraction] 97 % Amanda Fry Other [facility] Other 09-18-2021 10:10-0500 Systolic blood pressure 110 mm[Hg] Amanda Fry Other [facility] Other Encounters Encounter Date Encounter Type Care Provider Facility Start: 06-30-2024 End: 06-30-2024 Bamnirali Mcgrath MD Work Phone: [facility] Start: 06-30-2024 End: 06-30-2024 Diamond Mcgrath MD Work Phone: [facility] Start: 06-30-2024 End: 06-30-2024 Office outpatient new 30 minutes Coretta Mcgrath MD Work Phone: [facility] Comment on above: Melanocytic nevus of trunk (Primary Dx); Lentigines; Capillary angioma; Actinic keratosis; Seborrheic keratosis; Neoplasm of unspecified behavior of bone, soft tissue, and skin Start: 06-30-2024 End: 06-30-2024 ambulatory CORETTA MCGRATH Not Available Start: 10-07-2023 Telephone encounter Amanda Fry [facility] Start: 10-07-2023 End: 10-07-2023 ambulatory DEANDRA DAVID V Facility:[facility] Start: 09-24-2023 End: 09-24-2023 ambulatory Amanda Fry Other [facility] Other Start: 09-24-2023 Telephone encounter Amanda Fry [facility] Start: 09-23-2023 End: 09-23-2023 ambulatory DEANDRA DAVID V Facility:[facility] Start: 09-11-2023 End: 09-11-2023 ambulatory DEANDRA DAVID V Facility:[facility] Start: 09-11-2023 Encounter for other preprocedural examination DEANDRA DAVID V [facility] Start: 09-02-2023 End: 09-02-2023 ambulatory DEANDRA DAVID V Facility:[facility] Start: 06-18-2023 End: 06-18-2023 ambulatory DEANDRA VOSS V Facility:[facility] Start: 06-18-2023 End: 06-18-2023 Patient encounter procedure Deandra Voss MD Work Phone: Ophthalmology Comment on above: Combined forms of ag e-related cataract of both eyes (Primary Dx); Anatomical narrow angle, bilateral; Lamellar macular hole of right eye; Hyperopia with astigmatism and presbyopia, bilateral Start: 09-08-2022 End: 09-09-[address] AMANDA FRY Facility: Start: 09-18-2021 End: 09-18-2021 ambulatory Amanda Fry Other [facility] Other Start: 09-18-2021 Office outpatient vi sit 15 minutes Amanda Fry [facility] Start: 09-18-2021 Telephone encounter Amanda Fry [facility] Procedures Date Procedure Procedure Detail Performing Clinician Start: 06-30-2024 End: 06-30-2024 SKIN / NAIL BIOPSY Coretta Mcgrath MD Work Phone: Start: 06-30-2024 CRYOTHERAPY SKIN LESION Coretta Mcgrath MD Work Phone: Plan of Treatment Date Care Activity Detail Author Start: 06-30-2024 End: 06-30-2024 Patient encounter procedure 06/30/2024 9:05 AM EDT Office Visit [facility] [address] [place] [address] Coretta Mcgrath MD [address] [place] [address] Arrived [facility] Comment on above: Arrived Start: 05-08-2023 Influenza vaccination Influenza Vaccine (#1) [facility] Start: 09-07-2022 Advance Directive Discussion Advance Directive Discussion [facility] Start: 09-07-2022 Depression Assessment Depression Assessment [facility] Start: 2020 Pneumococcal Vaccine: 65+ (1 - PCV) Pneumococcal Vaccine: 65+ (1 - PCV) [facility] Start: 09-25-2011 Diabetes Screening Diabetes Screening [facility] Start: 2010 Prostate Cancer Screening Discussion Prostate Cancer Screening Discussion [facility] Start: 2005 Shingrix Vaccine (1 of 2) Shingrix Vaccine (1 of 2) [facility] Start: 2000 Cologuard (FIT-DNA) Cologuard (FIT-DNA) [facility] Start: 2000 Colonoscopy Colonoscopy [facility] Start: 2000 Colorectal Cancer Screening Colorectal Cancer Screening [facility] Start: [address] Colonography [facility] Start: 2000 Fecal Occult Blood Fecal Occult Blood [facility] Start: 2000 Sigmoidoscopy Sigmoidoscopy [facility] Start: 1990 Lipid 1996 panel - Serum or Plasma Lipid Screening [facility] Start: 1974 Urine microalbumin profile DTaP,Tdap,Td Vaccine (1 - Tdap) [facility] Start: 1973 Hepatitis C Screening Hepatitis C Screening [facility] Start: 04-02-1956 Covid-19 Vaccine (#1) Covid-19 Vaccine (#1) [facility] Dermatopathology exam Dermatopat hology exam Pathology and Cytology Timed Neoplasm of unspecified behavior of bone, soft tissue, and skin Release Upon Ordering for 1 Occurrences starting 06/30/2024 [facility] Work Phone: Comment on above: Release Upon Ordering for 1 Occurrences starting 06/30/2024 End: 12-09-2024 IOL BIOMETRY W/ IOL CALC OU (BOTH EYES) IOL BIOMETRY W/ IOL CALC OU (BOTH EYES) OPHT Imaging Routine Combined forms of age-related cataract of both eyes 1 Occurrences starting 06/18/2023 until 12/09/2024 [facility] Work Phone: Comment on above: 1 Occurrences starting 06/18/2023 until 12/09/2024 OCT MACULA CIRRUS OU (BOTH EYES) OCT MACULA CIRRUS OU (BOTH EYES) OPHT Imaging Routine Combined forms of age-related cataract of both eyes 06/18/2023 2:01 PM EDT [facility] Phone: [facility] Payers Date Payer Category Payer Blue Cross Blue Shield BCBS [id number] 2019 Unknown [employer]THEM BLUE CARD PPO OOS [id number] 2019-Present [phone] [id number] [place] [id number] PPO [id number] 1959 Blue Cross Blue Shield [id number] 1955 Unknown [id number] 1955 Unknown [id number] Social History Date Type Detail Facility Unknown if ever smoked [facility] Other Start: 06-18-2023 End: 06-30-2024 Sex Assigned At [place] Other Tobacco smoking status VTIS Tobacco smoking consumption unknown [facility] Start: 06-18-2023 End: 06-30-2024 History of Social function [facility] National Score (1-100), lower number is lower risk 63 [facility] Start: 1955 Sex Assigned At Not on file [facility] Start: 06-30-2024 Tobacco smoking status NHIS Never smoked tobacco [facility] Start: 06-30-2024 Tobacco use and exposure Smokeless tobacco non-user [facility] Clinical Notes 09-18-2021 to 06-30-2024 Coretta Mcgrath MD - 06/30/2024 9:05 AM EDTAddendum Note - Vida Salmeron - 06/18/2023 3:35 PM Deandra Tillman V, MD - 06/18/2023 3:12 PM EDAmisha Kolb OD - 06/18/2023 2:58 PM EDT Note Date & Type Note Facility 06-30-2024 History of Present illness Narrative Images from the original note were not included. Skin Check Location: Patient requests a full body skin examination Dermatologic history: no history of skin cancer, no history of atypical moles New patient All pertinent medical history, medications, and allergies were reviewed. General Exam: alert, oriented to person, place, and time, normal affect, well appearing Unaccompanied Areas not examined despite medical recommendation: Under socks Scalp, Examined Right leg Examined Head, Face Examined , Exam limited by elliott and mustache Left leg Examined Neck Examined Right foot not Examined Chest Examined Left foot not Examined Back Examined Buttocks Examined Abdomen Examined Digits,nails: Examined Right arm Examined Left arm Examined Lymphatics: Not examined Hands Examined 1. Melanocytic nevus of trunk Torso - Posterior (Back) Scattered benign appearing, regular brown to light brown melanocytic papules and macules with similar morphology Counseled regarding these benign growths. Rarely, a nevus can develop into malignant melanoma, so any changing nevi should be promptly re-evaluated. 2. Lentigines Mid Parietal Scalp Scattered liao macules in sun-exposed areas. The patient was informed that lentigines are benign pigmented lesions that occur on sun-exposed and sun-damaged skin. No treatment is necessary. Recommended regular use of broad spectrum sunscreen SPF 30 or higher 3. Capillary angioma (2) Mid Parietal Scalp, Torso - Posterior (Back) Scattered powell-red papule(s). The patient was informed that angiomas are benign growths on the the skin. No treatment is necessary. 4. Actinic keratosis Left Parotid Area Erythematous scaly papules Patient was counseled regarding these sun-induced growths that can develop into squamous cell carcinoma if left untreated. Discussed treatment with cryotherapy. It was emphasized that any treated lesions that fail to resolve should be re-evaluated. Cryotherapy performed today; see procedure note Diagnosis: Actinic keratosis Indication: Precancerous Location: see skin exam Consent: Verbal consent was obtained and risks were discussed, including, but not limited to risks of scarring, darker or application security specialist pigmentary changes, recurrence, incomplete removal and infection. Method: Liquid nitrogen was used to treat the lesion(s) with two 5-10 second freeze-thaw cycles. Number of lesions treated: 1 Post-procedure instructions: Instructions were given orally and in writing. The office will be contacted if the lesion fails to resolve despite treatment, or if a side effect develops such as abnormal crusting, scabbing, redness or tenderness Cryotherapy, skin lesion - Left Parotid Area 5. Seborrheic keratosis Left Breast Stuck on verrucous, liao-brown papules and plaques. Patient was counseled regarding these benign growths. Removal is normally not necessary, but they may be removed if they are symptomatic or for cosmetic reasons. 6. Neoplasm of unspecified behavior of bone, soft tissue, and skin (3) Right Abdomen [place] pearly papule Lesion biopsy Type of biopsy: tangential Informed consent: discussed and consent obtained Informed consent comment: The risks and benefits of the biopsy were discussed. Risks include but are not limited to bleeding, infection, scarring, pain, and nerve damage. An opportunity to ask questions prior to the procedure was permitted and all questions were answered. Patient was prepped and draped in usual sterile fashion: area cleansed with alcohol. Anesthesia: the lesion was anesthetized in a standard fashion Anesthetic: 1% lidocaine w/ epinephrine 1-100,000 buffered w/ 8.4% NaHCO3 Instrument used: DermaBlade Hemostasis achieved with: electrodesiccation Outcome: patient tolerated procedure well Outcome comment: The specimen was placed in a prelabeled formalin container to be sent for pathology Post-procedure details: sterile dressing applied and wound care instructions given Post-procedure details comment: Emphasized need to contact clinic for any signs of infection, uncontrollable bleeding, or complications. Dressing type: bandage Additional details: Photo taken Amount of lidocaine used: 1.0 cc Specimen A - Dermatopathology exam Differential Diagnosis: BCC Check Margins: No Size of lesion: 1.5 x 0.7 cm Left Lower Back [place] pearly papule Lesion biopsy Type of biopsy: tangential Informed consent: discussed and consent obtained Informed consent comment: The risks and benefits of the biopsy were discussed. Risks include but are not limited to bleeding, infection, scarring, pain, and nerve damage. An opportunity to ask questions prior to the procedure was permitted and all questions were answered. Patient was prepped and draped in usual sterile fashion: area cleansed with alcohol. Anesthesia: the lesion was anesthetized in a standard fashion Anesthetic: 1% lidocaine w/ epinephrine 1-100,000 buffered w/ 8.4% NaHCO3 Instrument used: DermaBlade Hemostasis achieved with: electrodesiccation Outcome: patient tolerated procedure well Outcome comment: The specimen was placed in a prelabeled formalin container to be sent for pathology Post-procedure details: sterile dressing applied and wound care instructions given Post-procedure details comment: Emphasized need to contact clinic for any signs of infection, uncontrollable bleeding, or complications. Dressing type: bandage Additional details: Photo taken Amount of lidocaine used: 1 cc Specimen B - Dermatopathology exam Differential Diagnosis: BCC Check Margins: No Size of lesion: 0.9 x 0.6 cm Right Lower Back [place] pearly papule Lesion biopsy Type of biopsy: tangential Informed consent: discussed and consent obtained Informed consent comment: The risks and benefits of the biopsy were discussed. Risks include but are not limited to bleeding, infection, scarring, pain, and nerve damage. An opportunity to ask questions prior to the procedure was permitted and all questions were answered. Patient was prepped and draped in usual sterile fashion: area cleansed with alcohol. Anesthesia: the lesion was anesthetized in a standard fashion Anesthetic: 1% lidocaine w/ epinephrine 1-100,000 buffered w/ 8.4% NaHCO3 Instrument used: DermaBlade Hemostasis achieved with: electrodesiccation Outcome: patient tolerated procedure well Outcome comment: The specimen was placed in a prelabeled formalin container to be sent for pathology Post-procedure details: sterile dressing applied and wound care instructions given Post-procedure details comment: Emphasized need to contact clinic for any signs of infection, uncontrollable bleeding, or complications. Dressing type: bandage Additional details: Photo taken Amount of lidocaine used: 1 cc Specimen C - Dermatopathology exam Differential Diagnosis: BCC Check Margins: No Size of lesion: 0.8 x 0.5 cm Next Visit: pending biopsy results documented in this encounter [facility] 10-07-2023 Note HNO ID: [id number] Author: KATHERINE RITCHIE RN Service: ? Author Type: Registered Nurse Type: Nursing Progress Note Filed: 10/07/2023 11:16 Note Text: Pt discharged to home in stable condition. Cont to deny any complaints. [facility] 09-23-2023 Note HNO ID: [id number] Author: KATHERINE RITCHIE RN Service: ? Author Type: Registered Nurse Type: Nursing Progress Note Filed: 09/23/2023 14:00 Note Text: Pt discharged to home in stable condition. Cont to deny any complaints [facility] 09-11-2023 Note HNO ID: [id number] Author: TOSHA FLORES COA Service: ? Author Type: Physician Practice Consultant Type: Progress Notes Filed: 09/11/2023 08:36 Note Text: CONFIRM AIM PLANO BOTH EYES. PATIENT AWARE THAT HE WILL NEED GLASSES FOR NEAR AND INTERMEDIATE. DARRICK Cervantes [facility] 06-18-2023 Note HNO ID: [id number] Author: Deandra Voss V, MD Service: ? Author Type: Physician Type: Progress Notes Filed: 06/18/2023 3:22 PM Note Text: The documentation for this note was completed by JORGE Mazariegos acting as a scribe for Deandra VOSS MD. 06/18/2023 3:12 PM. ASSESSMENT / PLAN: 1. Combined cataract, both eyes - Offered cataract extraction by phacoemulsification and intraocular lens implant with Dr. Voss, both eyes, left eye first - Aim: plano Both eyes - Flomax/alpha-kale? Yes - Toric candidate: No - PanOptix candidate: No - Anesthesia: Topical with MAC - Contact lens use No - History of LASIK/PRK/RK No - Discussed initiate twice daily eyelid scrubs pending U/S biometry and surgery - Comanage with Dr Sood; [facility] POD #1 Cataract Presurgical Documentation Cataract: Both eyes (OU) Current Visual Acuity Right Eye Distance CC 20/25 Left Eye Distance CC 20/25 Best Corrected Vision Right Eye 20/20 Best Corrected Vision Left Eye 20/20 Glare Testing: Right Eye High 20/50 Left Eye High 20/50 Visual Function: Roger Kapadia states that the decline in vision from the cataract impedes his abilities as listed in the HPI, as well as other activities of daily living. Roger Kapadia has confirmed that he is no longer able to function adequately on a day-to-day basis because of his current visual condition. Further, it is my medical opinion that the cataract is the primary cause, or at least a significantly contributory cause of his visual dysfunction. With uncomplicated cataract surgery and lens implantation, it is my expectation that his visual function and quality of life will improve significantly. The risks, benefits, alternatives, personnel and complications of cataract surgery with lens implantation were discussed with Roger Kapadia in detail. These included, but are not limited to: infection, bleeding, loss of vision, and the need for additional surgery. he appeared to understand and asked that I proceed with plans for surgery. Patient acknowledges possible need for glasses after procedure. Intraocular lens options were discussed with patient. If patient was a good candidate for multifocal Intraocular lenses, risk of halos, glare, and possible need for glasses was discussed. Informed consent form signed by physician and patient. Literature regarding cataract and cataract extraction by phacoemulsification offered. Return for preadmission testing, biometry AND intraocular lens calculations prior to surgery. The patient was offered a surgery/procedure at a [facility] facility. The surgeon/proceduralist and patient have discussed in detail the risk of exposure to and/or potential harm posed by the COVID-19 virus with having a surgery/procedure at this time versus the risk of delaying the surgery/procedure. It is not possible to know either the risk of delaying the surgery or procedure or chance of getting an infection with perfect accuracy, but a joint decision was made between the patient and the surgeon/proceduralist to proceed at this time with the scheduled surgery/procedure as indicated on the consent form. The documentation recorded by the scribe accurately reflects the service I personally performed and the decisions made by me. I have confirmed and edited as necessary the relevant ophthalmic history, ROS, and the exam findings as obtained by others. I have seen and examined Roger Kapadia. I also have reviewed and agree with the assessment and plan as stated above and agree with all of its relevant components. Deandra VOSS MD June 18, 2023 3:12 PM [facility] 06-18-2023 Note HNO ID: [id number] Author: Amisha Rob OD Service: ? Author Type: SCHEDULING CLERK Type: Progress Notes Filed: 06/18/2023 3:22 PM Note Text: ASSESSMENT/PLAN: 1. Combined forms of age-related cataract of both eyes - ICD9: 366.19, ICD10: H25.813 (primary diagnosis) OS>OD. Ref by Dr. Sood. Eval with today 2. Anatomical narrow angle, bilateral - ICD9: 365.02, ICD10: H40.033 Narrow but not occludable. 3. Lamellar macular hole of right eye - ICD9: 362.54, ICD10: H35.341 Mild irreg foveal contour by OCT. Observe. 4. Hyperopia with astigmatism and presbyopia, bilateral - ICD9: 367.0, 367.20, 367.4, ICD10: H52.03, H52.203, H52.4 Amisha Rob, OD I have confirmed and edited as necessary the relevant ophthalmic history, ROS, and the exam findings as obtained by others. I have seen and examined this patient. I have discussed the case and the management of this patient's care with the resident or fellow as appropriate. I also have reviewed and agree with the assessment and plan as stated above and agree with all of its relevant components. Amihsa Rob, OD June 18, 2023 2:58 PM [facility] 06-18-2023 Miscellaneous Notes Addended by: VIDA SALMERON on: 06/18/2023 03:35 PM Modules accepted: Orders documented in this encounter [facility] 06-18-2023 History of Present illness Narrative The documentation for this note was completed by JORGE Mazariegos acting as a scribe for Deandra VOSS MD. 06/18/2023 3:12 PM. ASSESSMENT / PLAN: 1. Combined cataract, both eyes - Offered cataract extraction by phacoemulsification and intraocular lens implant with Dr. Voss, both eyes, left eye first - Aim: plano Both eyes - Flomax/alpha-kale? Yes - Toric candidate: No - PanOptix candidate: No - Anesthesia: Topical with MAC - Contact lens use No - History of LASIK/PRK/RK No - Discussed initiate twice daily eyelid scrubs pending U/S biometry and surgery - Comanage with Dr Sood; [facility] POD #1 Cataract Presurgical Documentation Cataract: Both eyes (OU) Current Visual Acuity Right Eye Distance CC 20/25 Left Eye Distance CC 20/25 Best Corrected Vision Right Eye 20/20 Best Corrected Vision Left Eye 20/20 Glare Testing: Right Eye High 20/50 Left Eye High 20/50 Visual Function: Roger Kapadia states that the decline in vision from the cataract impedes his abilities as listed in the HPI, as well as other activities of daily living. Roger Kapadia has confirmed that he is no longer able to function adequately on a day-to-day basis because of his current visual condition. Further, it is my medical opinion that the cataract is the primary cause, or at least a significantly contributory cause of his visual dysfunction. With uncomplicated cataract surgery and lens implantation, it is my expectation that his visual function and quality of life will improve significantly. The risks, benefits, alternatives, personnel and complications of cataract surgery with lens implantation were discussed with Roger Kapadia in detail. These included, but are not limited to: infection, bleeding, loss of vision, and the need for additional surgery. he appeared to understand and asked that I proceed with plans for surgery. Patient acknowledges possible need for glasses after procedure. Intraocular lens options were discussed with patient. If patient was a good candidate for multifocal Intraocular lenses, risk of halos, glare, and possible need for glasses was discussed. Informed consent form signed by physician and patient. Literature regarding cataract and cataract extraction by phacoemulsification offered. Return for preadmission testing, biometry & intraocular lens calculations prior to surgery. The patient was offered a surgery/procedure at a [facility] facility. The surgeon/proceduralist and patient have discussed in detail the risk of exposure to and/or potential harm posed by the COVID-19 virus with having a surgery/procedure at this time versus the risk of delaying the surgery/procedure. It is not possible to know either the risk of delaying the surgery or procedure or chance of getting an infection with perfect accuracy, but a joint decision was made between the patient and the surgeon/proceduralist to proceed at this time with the scheduled surgery/procedure as indicated on the consent form. The documentation recorded by the scribe accurately reflects the service I personally performed and the decisions made by me. I have confirmed and edited as necessary the relevant ophthalmic history, ROS, and the exam findings as obtained by others. I have seen and examined Roger Kapadia. I also have reviewed and agree with the assessment and plan as stated above and agree with all of its relevant components. Deandra VOSS MD June 18, 2023 3:12 PM ASSESSMENT/PLAN: 1. Combined forms of age-related cataract of both eyes - ICD9: 366.19, ICD10: H25.813 (primary diagnosis) OS>OD. Ref by Dr. Sood. Mario with today 2. Anatomical narrow angle, bilateral - ICD9: 365.02, ICD10: H40.033 Narrow but not occludable. 3. Lamellar macular hole of right eye - ICD9: 362.54, ICD10: H35.341 Mild irreg foveal contour by OCT. Observe. 4. Hyperopia with astigmatism and presbyopia, bilateral - ICD9: 367.0, 367.20, 367.4, ICD10: H52.03, H52.203, H52.4 Amisha Rob, OD I have confirmed and edited as necessary the relevant ophthalmic history, ROS, and the exam findings as obtained by others. I have seen and examined this patient. I have discussed the case and the management of this patient's care with the resident or fellow as appropriate. I also have reviewed and agree with the assessment and plan as stated above and agree with all of its relevant components. Amisha Rob, PALOMA June 18, 2023 2:58 PM documented in this encounter [facility] 09-18-2021 Evaluation note Encounter Date Diagnosis Assessment Notes Sep, Hyperlipidemia (ICD-10 - E78.5) Discussed cholesterol results with patient today. Total is 192. HDL is 43. LDL is 131.2. Triglycerides are 89. I did recommend that he continue to stay active. Watch intake of carbs and sugars. He does work out every day. He admits he eats alot of fried foods and will try to cut back on these. Sep, Hypertension (ICD-10 - I10) Blood pressure is controlled. Sep, Elevated PSA (ICD-10 - R97.20) Discussed PSA results today. Total PSA is 1.5. Free PSA is 0.35. % free PSA is 23.3. At this time we can continue to monitor. Sep, Weight loss (ICD-10 - R63.4) He has lost weight since he was last seen. His TSH is 1.640. Sep, Nocturia (ICD-10 - R35.1) Sep, Hyperglycemia (ICD-10 - R73.9) Discussed blood sugar results with patient today. Glucose is 96. HgA1C is 5.2 which is normal. Sep, Other director long term care (current) drug therapy (ICD-10 - Z79.899) Sep, Other He takes Vitamin C and I did explain to him that this can increase his risk of kidney stones. He had kidney stones 10 years ago and stopped drinking pop (anything colored). Vitamin C is good for the immune system and helps with healing. He can research this if he would like. 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 Macular cyst, hole, or pseudohole of retina Hyperopia with astigmatism and presbyopia, bilateral [facility] Diagnosis Melanocytic nevus of trunk- Primary Benign neoplasm of skin of trunk, except scrotum Lentigines Capillary angioma Nevus, non-neoplastic Actinic keratosis Seborrheic keratosis Neoplasm of unspecified behavior of bone, soft tissue, and skin documented in this encounter [facility] N[facility]ative - Reported* Type Description Date Medical History hyperlipidemia Medical History hypertension Surgical History repair bicep rt arm - Dr. Minor howard 2009 Surgical History shoulder surgery - l igament detached rt side- Dr. Arango 2003 Surgical History kidney stones 3x- Dr. Cabrera 2011 Surgical History back sugery Dr Jo 03/18/[address] Perla pichardo- polyp removed, needs repeat in 01/2016 Surgical History colonoscopy, Dr. Mike ko - needs repeat in 202502/27/2021 [employer] Other History general Narrative - Reported* Type Description Date Medical History hyperlipidemia Medical History hypertension Medical History Never Smoked Surgical History repair bicep rt arm - Dr. Minor howard 2009 Surgical History shoulder surgery - l igament detached rt side- Dr. Arango 2003 Surgical History kidney stones 3x- Dr. Cabrera 2011 Surgical History back sugery Dr Jo 03/18/[address] Perla pichardo- polyp removed, needs repeat in 01/2016 Surgical History colonoscopy, Dr. Mike ko - needs repeat in 202502/27/2021 Surgical History left cataract 09/2023 [employer] Other Summary Purpose Family History No Family History Records FoundNo Family History Records FoundNo Family History Records Found Advance Directives No Advanced Directives Records FoundNo Advanced Directives Records FoundNo Advanced Directives Records Found Additional Source Comments REASON FOR VISIT (unrecogniz ed section and content) Reason Comments Cataract Evaluation Reason Comments Skin Check (unrecognized sect ion and content) No Status Records FoundNo Status Records FoundNo Status Records Found INFORMATION SOURCE (unrecogn ized section and content) DATE CREATED AUTHOR 09/09/2022 [facility] DATE CREATED AUTHOR AUTHOR'S ORGANIZ ATION 10/08/2023 [facility] DATE CREATED AUTHOR AUTHOR'S ORGANIZ ATION 07/01/2024 [facility] EPIC Source Comments (unrecognize d section and content) In the event this informatio n is protected by the Federal Confidentiality of Alcohol and Drug Abuse Patient Records regulations: The Federal rules restrict any use of the information to criminally investigate or prosecute any alcohol or drug abuse patient.[facility] Care Teams (unrecognized sec tion and content) Cable Splicer Assistant Relationship Specialty Start Date End Date Calvin Cox DO PCP - General 08/15/08 FOR RECORDS PERTAINING TO PATIENTS WHO ARE OR HAVE BEEN ENROLLED IN A CHEMICAL DEPENDENCY/SUBSTANCEABUSE PROGRAM, SOME INFORMATION MAY BE OMITTED. This clinical summary was aggregated from multiple sources. Caution should be exercised in using it in the provision of clinical care. This summary normalizes information from multiple sources, and as a consequence, information in this document may materially change the coding, format and clinical context of patient data. In addition, data may be omitted in some cases. CLINICAL DECISIONS SHOULD BE BASED ON THE PRIMARY CLINICAL RECORDS. [employer] [facility]. provides no warranty or guarantee of the accuracy or completeness of information in this document.
[2024-08-27 07:17] LABS: Basophils Absolute Auto 0.1 10^3/uL (0.0-0.1); Basophils Percent Auto 1.3 % (0.2-2.0); Eosinophils Absolute Auto 0.4 10^3/uL (0.0-0.7); Eosinophils Percent Auto 6.5 % (0.9-7.0); Hematocrit 47.8 % (42.0-54.0); Immature Granulocytes Abs Auto 0.01 10^3/uL (0.00-0.03); Immature Granulocytes Pct Auto 0.2 % (0.0-0.5); Lymphocytes Absolute Auto 1.7 10^3/uL (1.2-3.8); Lymphocytes Percent Auto 27.2 % (20.5-60.0); Mean Corpuscular HGB Conc 33.5 g/dL (29.9-35.2); Mean Corpuscular Hemoglobin 30.5 pg (25.9-34.0); Mean Corpuscular Volume 91.2 fL (80.0-94.0); Mean Platelet Volume 9.5 fL (9.5-13.5); Monocytes Absolute Auto 0.7 10^3/uL (0.3-0.8); Monocytes Percent Auto 10.6 % (1.7-12.0); Neutrophils Absolute Auto 3.5 10^3/uL (1.4-6.5); Neutrophils Percent Auto 54.2 % (43.0-75.0); Platelet Count 241 10^3/uL (150-450); Red Blood Count 5.24 10^6/uL (4.70-6.10); Red Cell Distribution Width 12.1 % (11.0-15.0); White Blood Count 6.4 10^3/uL (4.0-11.0)
[2024-08-27 07:23] LABS: Bilirubin Urine NEGATIVE (NEGATIVE); Blood Urine NEGATIVE (NEGATIVE); Clarity Urine CLEAR (CLEAR); Color Urine LT. YELLOW (YELLOW); Glucose Urine UA NEGATIVE (NEGATIVE); Ketones Urine NEGATIVE (NEGATIVE); Leukocyte Esterase Urine NEGATIVE (NEGATIVE); Nitrite Urine NEGATIVE (NEGATIVE); Protein Urine NEGATIVE (NEG/TRACE); Specific Gravity Urine 1.025 (1.005-1.025); Urobilinogen Urine 0.2 EU/dL (0.2-1.0)
[2024-08-27 07:24] LABS: Estimated Average Glucose 105 mg/dL; Glycohemoglobin A1C 5.3 % (4.5-6.2)
[2024-08-27 08:28] LABS: Alanine Aminotransferase 19 U/L (16-63); Albumin Level 3.7 g/dL (3.4-5.0); Alkaline Phosphatase 86 U/L (46-116); Anion Gap 9.8; Aspartate Amino Transferase 18 U/L (15-37); BUN Creatinine Ratio 12.6; Bilirubin Total 0.6 mg/dL (0.2-1.0); Calcium 9.1 mg/dL (8.5-10.1); Carbon Dioxide 32.3 mmol/L (21.0-32.0); Chloride 106 mmol/L (98-107); Cholesterol 198 mg/dL (<=200); Estimated GFR (African America >60 (>=60 mL/min/1.73m^2); Estimated GFR (Non-African Ame >60 (>=60 mL/min/1.73m^2); Globulin 3.6 g/dL; Glucose 100 mg/dL (74-106); HDL Cholesterol 50 mg/dL (40-60); LDL Cholesterol Calculated 130.8 mg/dL; Potassium 4.1 mmol/L (3.5-5.1); Sodium 144 mmol/L (136-145); Thyroid Stimulating Hormone 2.099 uIU/mL (0.358-3.740); Total Protein 7.3 g/dL (6.4-8.2); Triglycerides 86 mg/dL (<=150); VLDL CHOLESTEROL 17.2 mg/dL
[2024-08-27 08:34] LABS: Prostate Specific Antigen Scrn 1.61 ng/mL (<=4.00)
[2024-08-27 09:04] LABS: Bacteria Urine NONE SEEN #/HPF (NONE SEEN); Mucus Urine NONE SEEN (NONE SEEN); RBC Urine NONE SEEN #/HPF (0-2); WBC Urine NONE SEEN #/HPF (NONE SEEN)
[2024-08-27 09:05] LABS: Squamous Epithelial Cell Urine RARE #/LPF (NONE/RARE)
== END 2024-08-27 06:53 | disposition home or self-care (01) ==
LOC: LAB 06:54
PROVIDERS: PCP Family Medicine; Visit Provider Family Medicine
DX: Z00.00 Encounter for general adult medical examination without abnormal findings (principal); R73.9 Hyperglycemia, unspecified
CPT/HCPCS: 36415; 80053; 80061; 81001; 83036; 84443; 85025; G0103

== ENCOUNTER 2025-08-26 08:33 | Outpatient (OUT) | payer BC, SELFPAY ==
--- OUTSIDE RECORDS SUMMARY | 2025-08-26 08:37 | XMS_ITS | Clinical Summary ---
Author Organization [facility] Address [address] [place], [place] [id number] Care Team Providers Care Playground Equipment Erector Name Role Phone Esteban Fraire DO Primary Care Provider [phone] Allergies No known active allergies Medications MedicationSigDispense QuantityRefillsLast FilledStart DateEnd DateStatus multivit,calc,pom-ZJ-Q6-lycop (ONE-A-DAY MEN'S COMPLETE) 240 mcg-30 mcg- 300 mcg tab Take 1 tablet by mouth once daily.Active ascorbic acid, vitamin C, (VITAMIN C) 500 mg tablet Take 500 mg by mouth once daily.Active Active Problems ProblemNoted DateDiagnosed DateCalculus of fvoynk3408/29/2008 Family History Medical HistoryRelationCommentsDifficulty with anesthesiaNo Family History Social History Tobacco UseTypesPacks/DayYears UsedDateSmoking Tobacco: NeverSmokeless Tobacco: Never Tobacco Cessation:Counseling Given: Not Answered Alcohol UseStandard Drinks/WeekCommentsYes0 (1 standard drink = 0.6 oz pure alcohol)a few beers per weekArea Deprivation IndexAnswerDate RecordedNational Score (1-100), lower number is lower wbee996909/02/2023State Score (1-10), lower number is lower zmlj1633Data from: https://www.neighborhoodatlas.medicine.[facility].edu/. Last address used for hhferptgszw4[address] Sex and Gender InformationValueDate RecordedSex Assigned at BirthNot on fileLegal NevScnt97/02/2012 8:17 AM ESTGender Identity Not on fileSexual OrientationNot on file Last Filed Vital Signs Vital SignReadingTime TakenCommentsBlood Anltihzo762/8110/07/2023 11:11 AM EST Kvtje765910/07/2023 11:01 AM MMGYhsvwjaoxxw74.6 ??C (97.9 ??F)10/07/2023 11:01 AM ESTRespiratory Aygy438310/07/2023 11:11 AM ESTOxygen Zmjxwzroqm52%10/07/2023 11:11 AM ESTInhaled Oxygen Concentration--Jnoxpv05 kg (167 lb 8.8 oz)09/11/2023 7:59 AM JYKXoieeh959.3 cm (5' 9 )09/11/2023 7:59 AM ESTBody Mass Index24.7409/11/2023 7:59 AM EST Plan of Treatment Health MaintenanceDue DateLast DoneCommentsAnxiety Fmqapbogb63/27/1974Depression Fnqkjchkw41/27/1974Hepatitis C Wxboqaghc41/27/1974DTaP,Tdap,Td Vaccine (1 - Tdap)1974Lipid Pdpudizfy55/27/1991CT Fsdlsiwmgdpd84/27/2001Cologuard (FIT-DNA)10/03/20003128Csgshjqxofv30/27/2001Colorectal Cancer Wfurdfept88/27/2001 Fecal Occult Blood10/03/20005700Cgdldylvldekd73/27/2001Pneumococcal Vaccine: 50+ (1 of 1 - PCV)2005Shingrix Vaccine (1 of 2)2005Diabetes Screening dvance Directive Juasscqnwu15/01/2025ovid-19 Vaccine (1 - season)2025Influenza Vaccine (#1)2025RSV Vaccine (1 - 1-dose 75+ series)2030 Medical Devices ImplantedTypeAreaManufacturerDevice IdentifierShelf Expiration DateModel / Serial / [id number] [facility] - [id number] Implanted:Qty: 1 on 09/23/2023 by Kim Voss V, MD at [facility] Intraocular LensLeft: [employer] ZTCMOCAR90/26/[id number].195 / [id number] / Description:-0.30Ty97vg [facility] - [id number] Implanted:Qty: 1 on 10/07/2023 by Kim Voss V, MD at [facility] Intraocular LensRight: [employer] CNOOWGDX79/15/[id number].195 / [id number] / Description:-0.32 Procedures Procedure NamePriorityDate/TimeAssociated DiagnosisCommentsCOMPREHENSIVE METABOLIC CNPIDKhsfsbz91/19/2009 11:57 AM EST Calculus Of Kidney from Last 3 Months or Most Recently Relevant to Health Maintenance Results * COMP METABOLIC PANEL (09/25/2008 11:57 AM EST)ComponentValueRef RangeTest MethodAnalysis TimePerformed AtPathologist SignatureProtein, Total7.66.0 - 8.4 g/dLBLANCHARD VALLEY [facility] SYSTEM [facility] LABORATORYAlbumin4.83.5 - 5.0 g/dLBLANCHARD VALLEY [facility] KJPJUPYYSOZlhwskn41.08.5 - 10.5 mg/dLBLANCHARD VALLEY [facility]ALTH SYSTEM [facility] Bilirubin, Total0.40.0 - 1.5 mg/dLBLANCHARD VALLEY HEALTH SYSTEM [facility] LABORATORYAlkaline Uuznbwtcxcn3548 - 150 U/LCGRAND LAKE [facility] UUYVEPFRSFRTP842 - 40 U/L [facility] RCDMEFCNQMSzyzrpb8688 - 100 mg/dLBLANCHARD VALLEY [facility] YPSBTPTEVOFGP2119 - 25 mg/dLBLANCHARD VALLEY [facility]ALTH SYSTEM [facility] LABORATORYCreatinine0.960.70 - 1.40 mg/dLBLANCHARD VALLEY [facility] WNNNEVASWCOjarom913465 - 146 mmol/LCGRAND LAKE [facility] LABORATORYPotassium4.43.5 - 5.0 mmol/LCGRAND LAKE [facility] BWDAJLKPGRUyzydjoy63990 - 110 mmol/LCGRAND LAKE [facility] FXVJHOKCNTEW10702 - 32 mmol/LCKEENAN [facility]IVATE [facility] MAIN LABORATORYAnion Gap60 - 15 mmol/LCKEENAN PRIVATE HOSPITAL [facility]IN DKHDBNHIQMLEU315 - 50 U/LCGRAND LAKE [facility] LABORATORYeGFR- >60[facility] LABORATORYeGFR-All Other Races>60 [facility] LABORATORYComment: eGFR (Estimated GFR) Units of measure: mL/min/1.73 meters squared eGFR is derived from the reexpressed MDRD Study equation using the following parameters: serum creatinine, age, gender and race. The creatinine assay has been calibrated to be traceable to IDMS. An eGFR <60 mL/min/1.73m2 for >3 months is consistent with chronic kidney disease. Refer to KDOQI guidelines for clinical interpretation. Specimen (Source)Anatomical Location / LateralityCollection Method / Volume Collection TimeReceived TimeBlood specimen (specimen)BLOOD SPECIMEN / Unknown 09/25/2008 11:57 AM EST Narrative Authorizing ProviderResult TypeResult StatusMimarquise Kinney MDLABORATORYFinal ResultPerforming OrganizationAddressCity/State/ZIP CodePhone Number [facility] [address] [place] [address] from Last 3 Months or Most Recently Relevant to Health Maintenance Insurance * Guarantor: Roger Kapadia TypeRelation to PatientDate of BirthPhone Billing AddressPersonal/DcresvPymy[birth year][address] [address] Care Teams Team MemberRelationshipSpecialtyStart DateEnd Date Esteban Fraire DO [address] [place] [address] PCP - GeneralFamily Medicine09/11/23
--- OUTSIDE RECORDS SUMMARY | 2025-08-26 08:37 | XMS_ITS | Clinical Summary ---
Author Organization [facility] Address [address] [place] [address] Care Team Providers Care Marketing Content Coordinator Name Role Phone Unavailable Primary Care Provider Unavailabl e Allergies No known active allergies Medications No known medications Active Problems No known active problems Encounters DateTypeDepartmentCare IpjaZylfdconrxu32/17/2025 4:00 PM ESTProcedure Visit [facility] [address] [place] [address] Coretta Heller MD Basal cell carcinoma (BCC) of skin of other part of torso (Primary Dx)07/24/2025 Aaxauy5007/19/20257862Ryfshk34/15/2025Telephone [facility] [address] [place] [address] Collette Pedroza LPN Care Taxdnzhaisyo18/26/2025 8:45 AM EDTOffice Visit [facility] [address] [place] [address] Inna Cole MD 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 (Primary Dx); Encounter for removal of orffwww6806/02/2025amboo flowsheet [facility] [address] [place] [address] Inna Cole MD 06/02/20255686Ikhojt94/22/2025Telephone [facility] [address] [place] [address] Inna Lawson LPN Courtesy callfrom Last 3 Months Family History Medical HistoryRelationNameCommentsMelanomaNeg Hx Social History Tobacco UseTypesPacks/DayYears UsedDateSmoking Tobacco: NeverSmokeless Tobacco: Never Tobacco Cessation:Counseling Given: Not Answered Sex and Gender InformationValueDate RecordedSex Assigned at BirthNot on file Legal VseLxyk3111/19/2022 6:36 PM EDTGender IdentityNot on fileSexual Orientation Not on file Last Filed Vital Signs Vital SignReadingTime TakenCommentsBlood Fvfrowlk491/8206/02/2025 9:11 AM EDT Pulse--Temperature--Respiratory Rate--Oxygen Saturation--Inhaled Oxygen Concentration--Weight--Height--Body Mass Index-- Plan of Treatment DateTypeDepartmentCare Team (Latest Contact Info)Ywfpukmahzz88/15/2026 9:50 AM ESTOffice Visit [facility] [address] [place] [address] Coretta Heller MD [address] [place] [address] Procedures Procedure NamePriorityDate/TimeAssociated DiagnosisCommentsDESTRUCTION OF LESION Mvanfdo9007/24/2025 3:43 PM EST Basal cell carcinoma (BCC) of skin of other part of torso SKIN HNGMIBWngosfo88/26/2025 2:22 PM EDT 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 Informed consent: discussed and consent obtained ?? Informed consent comment: ??The risks of the procedure were discussed, including, but not limited to risks of scarring, darker or dairy nutrition consultant pigmentary changes, recurrence, infection, and incomplete removal Timeout: ??patient name, date of , surgical site, and procedure verified Timeout comment: ??Patient and provider identified site. Site was marked. Photo was taken and shown to patient, patient verified this is the correct site. Procedure prep: ??Patient was prepped and draped in usual sterile fashion Prep type: ??Chlorhexidine Anesthesia: the lesion was anesthetized in a standard fashion ?? Anesthetic: ??1% lidocaine w/ epinephrine 1-100,000 buffered w/ 8.4% NaHCO3 Curettage performed in three different directions: Yes ?Electrodesiccation performed over the curetted area: No ?? Curettage cycles: ??3 Lesion length (cm): ??1.2 Lesion width (cm): ??0.7 Margin per side (cm): ??0 Final wound size (cm): ??1.2 Hemostasis achieved with: ??aluminum chloride Outcome: patient tolerated procedure well with no complications ?? Post-procedure details: wound care instructions given ?? Post-procedure details comment: ??Post-procedure instructions were given verbally and in writing. The office will be contacted if the lesion fails to resolve despite treatment, or if a side effect develops such as abnormal crusting, scabbing, reddness, discharge, or tenderness. Additional details: ??Amount of lidocaine used: 1.0 cc Previous accession number: [id number] Authorizing ProviderResult TypeResult StatusEmily A Arron [facility] PROCEDURE ORDERABLESFinal Result * Skin repair (06/02/2025 2:22 PM EDT) Narrative Inna Cole MD - 06/02/2025 2:22 PM EDT Complexity: Simple Final length (cm): ??3.1 Timeout: patient name, date of , surgical site, and procedure verified ?? Procedure prep: ??Patient was prepped and draped in usual sterile fashion Anesthesia: the lesion was anesthetized in a standard fashion ?? Anesthetic: ??1% lidocaine w/ epinephrine 1-100,000 buffered w/ 8.4% NaHCO3 Undermining: edges could be approximated without difficulty ?? Fine/surface layer approximation (top stitches): Suture size: ??5-0 Suture type: fast-absorbing plain gut ?? Stitches: simple interrupted ?? Hemostasis achieved with: electrodesiccation Post-procedure details: sterile dressing applied and wound care instructions given ?? Dressing type: pressure dressing ?? Authorizing ProviderResult TypeResult StatusCoel Cole MDDERM PROCEDURE ORDERABLESFinal Result * Mohs surgery (06/02/2025 8:36 AM EDT) Camila Gatica MA - 06/02/2025 8:36 AM EDT Consent obtained: written [place] Protocol: Procedure explained and questions answered to patient or proxy's satisfaction: Yes ?? Test results available and properly labeled: Yes ?? Pathology report reviewed: Yes ?? External notes reviewed: Yes ?? Photo or diagram used for site identification: Yes ?? Site/side marked: Yes ?? Slide independently reviewed by Mohs surgeon: Yes ?? Anticoagulation: Is the patient taking prescription anticoagulant and/or aspirin prescribed/recommended by a physician? No ?? Anesthesia: Anesthesia method: local infiltration Local anesthetic: lidocaine 1% WITH epi and sodium bicarbonate Procedure Details: Timeout: pre-procedure verification complete Procedure Prep: patient was prepped and draped in usual sterile fashion Biopsy accession number: [id number] Biopsy lab: [facility] Date of biopsy: 03/21/2025 Pre-Op diagnosis: basal cell carcinoma BCC subtype: superficial MohsAIQ Surgical site (if tumor spans multiple areas, please select predominant area): eyelid Surgery side: right Surgical site (from skin exam): Right Lateral Canthus Pre-operative length (cm): 1.1 Pre-operative width (cm): 0.6 Indications for Mohs surgery: anatomic location where tissue conservation is critical and ill-defined borders Mohs Appropriate Use Criteria Score: 7 Details of micrographic surgery: Mohs accession number: [id number] Micrographic Surgery Details: Post-operative length (cm): 2.3 Post-operative width (cm): 2 Number of Mohs stages: 4 Post surgery depth of defect: subcutaneous fat Stage 1 ?? Comments: The area was prepped with [employer]cu[employer], draped in a sterile fashion, and infiltrated with local anesthetic. Sterile technique was used throughout the procedure. The marked area of clinical tumor with a small rim of clinically normal surrounding skin was removed using Mohs technique with beveled edges. Hash harman were placed for orientation of the specimen. Hemostasis was achieved with electrodessication. After hemostasis, the defect was measured and recorded, a temporary sterile dressing was placed over the wound, and the patient was escorted to the waiting area. The specimen was oriented, mapped, and if necessary, divided into sections. A Mohs map was prepared. The specimen was placed in a labeled anisa dish and was taken to the Mohs lab where it was chromacoded and processed. Mohs sections were prepared with serial tissue sections, stained, and evaluated by Dr. Cole for interpretation of deep and peripheral margins. The Mohs map was marked accordingly. Amount of lidocaine used: 0.7 cc Estimated blood loss: <1.0mL Defect size: 0.8 x 0.7 cm Number of blocks per stage: 1 Number of positive blocks: 1 ?? Tumor features identified on Mohs section: basal carcinoma ?? Other tumor features identified: superficial ?? Depth of tumor invasion after stage: dermis Stage 2 ?? Comments: The patient returned to the procedure room, the dressing was remove, the tumor area was re-prepped and draped, and anesthesia was assessed and augmented as necessary. A layer of tissue around the positive margin(s) was removed, and the tissue was oriented, mapped, and processed in an identical fashion as for Stage 1. Hemostasis was achieved and dressing placed as in Stage 1. The patient was escorted to the waiting area. As with Stage 1, Mohs sections were prepared with serial tissue sections, stained, and evaluated by Dr. Cole for interpretation of deep and peripheral margins. The Mohs map was updated. Assistants: WILEY Parker Amount of lidocaine used: 1.8 cc Estimated blood loss: <1.0 mL Defect size: 1.0 x 0.8 cm Number of blocks: 1 Number of positive blocks: 1 ?? Tumor features identified on Mohs section: basal carcinoma ?? Other tumor features identified: superficial and nodular ?? Depth of tumor invasion after stage: dermis Stage 3 ?? Comments: The patient returned to the procedure room, the dressing was remove, the tumor area was re-prepped and draped, and anesthesia was assessed and augmented as necessary. A layer of tissue around the positive margin(s) was removed, and the tissue was oriented, mapped, and processed in an identical fashion as for Stage 1. Hemostasis was achieved and dressing placed as in Stage 1. The patient was escorted to the waiting area. As with Stage 1, Mohs sections were prepared with serial tissue sections, stained, and evaluated by Dr. Cole for interpretation of deep and peripheral margins. The Mohs map was updated. Assistants: Cynthia Pedroza LPN Amount of lidocaine used: 1.0 cc Estimated blood loss: <1.0 mL Defect size: 1.8 x 1.0 cm Number of blocks: 1 Number of positive blocks: 1 ?? Tumor features identified on Mohs section: basal carcinoma ?? Other tumor features identified: superficial and early nodular ?? Depth of tumor invasion after stage: dermis and subcutaneous fat Stage 4 ?? Comments: The patient returned to the procedure room, the dressing was remove, the tumor area was re-prepped and draped, and anesthesia was assessed and augmented as necessary. A layer of tissue around the positive margin(s) was removed, and the tissue was oriented, mapped, and processed in an identical fashion as for Stage 1. Hemostasis was achieved and dressing placed as in Stage 1. The patient was escorted to the waiting area. As with Stage 1, Mohs sections were prepared with serial tissue sections, stained, and evaluated by Dr. Cole for interpretation of deep and peripheral margins. The Mohs map was updated. Assistants: WILEY Parker Amount of lidocaine used: 1.0 cc Estimated blood loss: <1.0 mL Defect size: 2.3 x 2 cm Number of blocks: 1 Number of positive blocks: 0. Tumor free margins were obtained and the Mohs procedure was considered complete. ? Tumor features identified on Mohs section: basal carcinoma ?? Tumor features identified on Mohs section comment: nodular basal cell carcinoma in non-marginal section and margin clear ?? Depth of tumor invasion after stage: subcutaneous fat Patient tolerance of procedure: tolerated well, no immediate complications Reconstruction: Was the defect reconstructed? Yes ?? Was reconstruction performed by the same Mohs surgeon? Yes ?? Setting of reconstruction: outpatient office When was reconstruction performed? same day Type of reconstruction: linear Linear reconstruction: simple Opioids: Did the patient receive a prescription for opioid/narcotic related to Mohs surgery?: No ?? Antibiotics: Were antibiotics given on the day of surgery?: No ?? Authorizing ProviderResult TypeResult StatusCoel Cole MDDERM PROCEDURE ORDERABLESFinal Result from Last 3 Months Insurance
[2025-08-26 10:23] LABS: Glucose Urine UA NEGATIVE (NEGATIVE)
[2025-08-26 10:24] LABS: Hematocrit 48.2 % (42.0-54.0); Hemoglobin 16.6 g/dL (14.0-18.0); Immature Granulocytes Abs Auto 0.01 10^3/uL (0.00-0.03); Immature Granulocytes Pct Auto 0.1 % (0.0-0.5); Lymphocytes Absolute Auto 1.9 10^3/uL (1.2-3.8); Mean Corpuscular HGB Conc 34.4 g/dL (29.9-35.2); Mean Corpuscular Hemoglobin 31.3 pg (25.9-34.0); Mean Corpuscular Volume 90.9 fL (80.0-94.0); Platelet Count 267 10^3/uL (150-450); Red Blood Count 5.30 10^6/uL (4.70-6.10); White Blood Count 6.9 10^3/uL (4.0-11.0)
[2025-08-26 10:27] LABS: Alanine Aminotransferase 22 U/L (16-63); Albumin Globulin Ratio 1.1; Albumin Level 3.9 g/dL (3.4-5.0); Alkaline Phosphatase 82 U/L (46-116); Anion Gap 9.9; Aspartate Amino Transferase 18 U/L (15-37); Blood Urea Nitrogen 12.0 mg/dL (7.0-18.0); Calcium 9.1 mg/dL (8.5-10.1); Carbon Dioxide 30.1 mmol/L (21.0-32.0); Chloride 105 mmol/L (98-107); Cholesterol 189 mg/dL (<=200); Estimated GFR (African America >60 (>=60 mL/min/1.73m^2); Estimated GFR (Non-African Ame >60 (>=60 mL/min/1.73m^2); Globulin 3.6 g/dL; Glucose 97 mg/dL (74-106); HDL Cholesterol 37 mg/dL (40-60); Potassium 4.0 mmol/L (3.5-5.1); Sodium 141 mmol/L (136-145); Thyroid Stimulating Hormone 1.572 uIU/mL (0.358-3.740); Total Protein 7.5 g/dL (6.4-8.2); Triglycerides 122 mg/dL (<=150); VLDL CHOLESTEROL 24.4 mg/dL
== END 2025-08-26 08:34 | disposition home or self-care (01) ==
PROVIDERS: PCP Family Medicine; Visit Provider Family Medicine
DX: Z00.00 Encounter for general adult medical examination without abnormal findings (principal); Z12.5 Encounter for screening for malignant neoplasm of prostate
CPT/HCPCS: 36415; 80053; 80061; 81003; 83036; 84443; 85025; G0103